=== PATIENT | male | born 1930 | race Caucasian/White ===

== ENCOUNTER 2017-07-11 12:19 | Inpatient (IN) | payer OTHER ==
[~2017-07-11] VITALS: Ht 180.3 cm; Wt 83.9 kg
--- NOTE | ~2017-07-11 | PR ---
[place], [place] PROGRESS NOTE NAME: ANA CHOPRA JR [facility] #: [id number] UNIT #: [id number] ROOM: 406 DOCTOR: OH MOYER MD BIRTHDATE: [birth year] DOS: 07/12/2017 SUBJECTIVE: The patient was seen at his bedside today, 07/12/2017, for followup of his dyspnea. Clinically, he was felt to have heart failure on admission. He also had atrial fibrillation and a pacemaker in place. He is typically followed by elementary educator at the [facility]. He did diurese overnight and states that he feels pretty well today, although he still has some wheezing when he lays down. An echocardiogram was done, which showed normal left ventricular size with global left ventricular hypokinesis. Estimated ejection fraction was moderately impaired at 30-35%. Diastolic function was also impaired, but could not be fully evaluated. He did have mild mitral insufficiency and trace to mild tricuspid insufficiency with normal right ventricular systolic pressures. PHYSICAL EXAMINATION: VITAL SIGNS: Today his pulse is 98 and irregularly irregular, blood pressure is 142/77. He is afebrile. He weighs 83.9 kg and has a body mass index 25.8. HEENT: normocephalic and atraumatic. NECK: Supple. He has jugular venous distention when lying at a 45 degree angle with slight hepatojugular reflux. Carotids are full. LUNGS: Respirations are unlabored. His chest is clear to auscultation and percussion today. HEART: Has an irregularly irregular rhythm without murmurs or gallops. The PMI was not displaced. There was no precordial heave, lift or thrill. EXTREMITIES: Showed 1+ edema at the ankles. LABORATORY DATA: Hemoglobin today is 12.6 with a white count of 7300 and a platelet count of 197,000. Sodium is 139, potassium 4.3, BUN 38, creatinine 2.21. IMPRESSION AND PLAN: The patient does appear to be clinically improved, although he still does seem to be somewhat fluid overloaded. His echocardiogram does show left ventricular dysfunction. We do not have records available to let us know if this is an acute or chronic process. However, his troponin levels are only minimally elevated without a typical rise and fall pattern, suggesting that his elevation was due to acute heart failure. We will switch him from IV to oral diuretics today and continue to follow his clinical status. If he is doing well within the next day, he probably could be discharged for followup with his regular elementary educator. I thank the hospitalist physicians for asking our advice regarding his care. [place], [place] PROGRESS NOTE NAME: ЮЛИЯCALEB ANA CUMMINGS UNIT #: [id number] ROOM: 406 DOCTOR: OH MOYER MD BIRTHDATE: [birth year] OH MOYER MD CM:PNTRANS [id number] OH MOYER MD 07/12/17 1442 interface
--- NOTE | ~2017-07-11 | CON ---
[place], [place] REPORT OF CONSULTATION NAME: ANA CHOPRA JR [facility] #: [id number] UNIT #: [id number] ROOM: 406 DOCTOR: OH MOYER MD BIRTHDATE: [birth year] DOS: 07/11/2017 REASON FOR CONSULTATION: Dyspnea, history of heart disease. HISTORY OF PRESENT ILLNESS: The patient is an 87-year-old man who does have a history of coronary artery disease. He states that he had a myocardial infarction around 1989 and has had stents placed in his heart in the past, but does not know the details. He states that he has had a problem with slow heartbeat and had a pacemaker placed about 10 years ago. He also has had paroxysmal atrial fibrillation and is fully anticoagulated with warfarin. The patient states that he was doing well until the last 3 or 4 days. He began having problems with increased dyspnea on exertion. He noticed some fluttering in his chest. He denied any chest pain and denied any peripheral edema or weight change. He stated that he had a routine appointment [facility] [place] [facility]. He did mention to them that he has been breathless lately. They did an electrocardiogram and then directed him to the Emergency Room. At the Emergency Room, he was found to be in atrial fibrillation with a slightly rapid heart rate response. Chest x-ray was interpreted as showing a left lower lobe infiltrate, even though he did not have a fever or elevated white count. He was hospitalized for further management. PAST MEDICAL HISTORY: Includes, 1. Coronary artery disease, status post myocardial infarction in 1989. 2. Chronic renal insufficiency. 3. Hypertension. 4. Hypothyroidism. 5. Diabetes mellitus, on insulin. 6. Conduction system disorder, probable sick sinus syndrome with tachy and trinidad features, status post pacemaker insertion approximately 2007. 7. Peripheral arterial disease. MEDICATIONS: Prior to admission: Refresh Plus eyedrops each eye t.i.d., allopurinol 200 mg daily, atorvastatin 20 mg at bedtime, iron sulfate 325 mg t.i.d., folic acid 1 mg daily, levothyroxine 125 mcg daily, pantoprazole 40 mg daily, potassium 10 mEq daily, warfarin 2.5 mg at bedtime, Lantus insulin 30 units subcutaneously every morning, clotrimazole 30 grams b.i.d., lidocaine cream p.r.n. pain applied to the feet, analgesic balm applied to the feet, hydrophilic ointment b.i.d. applied to affected areas and mineral oil with petrolatum applied daily. The patient states that he also takes a diuretic, but this was not in his list of medications prior to admission. FAMILY HISTORY: The patient's father at age 90 and his mother at age 97, causes old age. REVIEW OF SYSTEMS: The patient denies diplopia or loss of vision. 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 He denies nausea or vomiting. He denies fevers, chills, sweats or recent weight change. He denies orthopnea, although he states that he wheezes and feels uncomfortable in his chest when he lays flat for the last few [place], [place] REPORT OF CONSULTATION NAME: ANA CHOPRA JR UNIT #: [id number] ROOM: [facility] DOCTOR: OH MOYER MD BIRTHDATE: [birth year] days. He denies PND. He denies hemoptysis or hematemesis. He denies change in bowel or bladder habits and denies blood in his stools or urine. He denies any skin rashes. He denies any hot or swollen joints. The remainder of the review of systems is negative except as noted above. SOCIAL HISTORY: The patient does not smoke or consume significant amounts of alcohol. PHYSICAL EXAMINATION: GENERAL: The patient is an elderly white male who looks younger than his stated age. VITAL SIGNS: Pulse is 90 and irregularly irregular, blood pressure is 155/74. He is afebrile. He weighs 83.9 kg and has a body mass index of 25.8. HEENT: Normocephalic and atraumatic. Extraocular muscles are intact. Sclerae are clear. Pupils equal, round and react to light. The oral mucosa is moist. Tongue is midline. NECK: Supple. He has jugular distention almost to the angle of the jaw with hepatojugular reflux when he is sitting at a 30-degree angle. Carotids are full. I heard no bruits. He had no neck or supraclavicular masses and no thyromegaly. LUNGS: Respirations are unlabored at rest. He does have decreased breath sounds at the bases with a few crackles at the bases bilaterally. He does have presacral edema present. CARDIOVASCULAR: His heart has an irregularly irregular rhythm without murmurs or gallops. PMI is not displaced. There is no precordial heave, lift or thrill. ABDOMEN: Soft and normally active without masses, organomegaly or bruits. EXTREMITIES: Showed a 2-3+ edema almost to the knees. Pedal pulses are difficult to feel in the feet. LABORATORY DATA: I reviewed his electrocardiogram, which showed atrial fibrillation with a slightly elevated heart rate response. He did have evidence for left ventricular hypertrophy and nonspecific ST changes that are probably related to the hypertrophy. A chest x-ray shows cardiac silhouette at the upper limits of normal. There is some haziness at the left base, but no definite vascular congestion. Troponin levels are mildly elevated at 0.1. IMPRESSION: 1. Dyspnea, most likely due to an acute exacerbation of chronic diastolic heart failure. 2. Sick sinus syndrome with tachycardic and bradycardic features. 3. Atrial fibrillation with relatively well controlled ventricular response. 4. History of coronary artery disease. 5. History of bradycardia, status post dual chamber pacemaker insertion. The patient is on chronic warfarin therapy for stroke prophylaxis. 6. Chronic renal insufficiency. PLAN: The patient will be diuresed. He probably should go home on a loop [place], [place] REPORT OF CONSULTATION NAME: ANA CHOPRA JR J UNIT #: [id number] ROOM: 406 DOCTOR: OH MOYER MD BIRTHDATE: [birth year] diuretic. He does have routine followup with a search engine optimization strategist and we will encourage him to follow up with his normal search engine optimization strategist shortly after discharge. At this point, no other workup is being considered. However, if he does not respond immediately to therapy, an echocardiogram will be obtained. I thank Dr. Lind and the hospitalist group for asking our advice regarding the patient's care. OH MOYER MD CM:CONSTR:REPORT OF CONSULTATION 1747 07/11/17 1843 interface
[~2017-07-11 12:19] MED LIST: ABSORBASE TP; ALLOPURINOL100 MG PO; AMLODIPINE BESYL5 MG PO; ASPIRIN DELAYE325 MG PO; ASPIRIN81 M1 PO; CARAFATE1 GM/10 ML PO; CEPHALEXIN500 M1 PO; COLCHICINE0.6 M2 PO; DAYPRO600 M1 PO; FERROUS SULFAT324 M2 PO; GEMFIBROZIL600 MG PO; HYDR1000 IM; KLOR-CON 88 ME1 PO; LASIX40 MG PO; LEVOTHYROXINE125 MCG PO; LOTRIMIN 1%15 GM T; LOVENOX40 MG/0.4 SC; MOTRIN800 MG PO; NEURONTIN300 MG PO; NIFEDIPINE30 MG PO; POTASSIUM99 M3 PO; PRAVACHOL40 MG PO; PROTONIX TR40 M1 PO; XARELTO15 M1 PO; ZOLADEX10.8 MG IM; [UNRECOGNIZED DRUG - OTHER]
[2017-07-11 12:24] VITALS: BP 137/71
[2017-07-11 12:52] LABS: BASO # 0.1 10*3/uL (0.0-0.1); EOS # 0.2 10*3/uL (0.0-0.4); EOS % 2.6 % (1.0-4.0); HEMATOCRIT 40.9 % (42.0-52.0); LYMPH % 16.8 % (27.0-41.0); MEAN CELL VOLUME 93.6 fl (80.0-94.0); MEAN CORPUSCULAR HGB 29.7 pg (27.0-31.0); MEAN CORPUSCULAR HGB CONC 31.8 g/dl (33.0-37.0); MONO # 0.4 10*3/uL (0.1-1.0); MONO % 6.6 % (3.0-9.0); NEUT # 4.5 10*3/uL (2.3-7.9); NEUT % 72.7 % (47.0-73.0); PLATELET COUNT AUTOMATED 195 10*3/uL (130-400); RED BLOOD COUNT 4.37 10*6/uL (4.50-5.90); RED CELL DISTRI WIDTH 15.8 % (0-14.5); WHITE BLOOD COUNT 6.2 10*3/uL (4.8-10.8)
[2017-07-11 13:02] LABS: INTERNATIONAL NORM RATIO 2.6 (2.0-3.5)
[2017-07-11 13:10] LABS: ALBUMIN 3.8 gm/dl (3.1-4.5); CREATININE 2.08 mg/dL (0.70-1.30); POTASSIUM 4.5 mmol/L (3.5-5.1); TOTAL PROTEIN 7.4 gm/dL (6.4-8.2)
[2017-07-11 13:13] LABS: TROPONIN I 0.1 ng/ml (<0.045)
[2017-07-11 13:25] LABS: THYROID STIM HORMONE (HS) 0.947 uIU/ml (0.358-4.75)
[2017-07-11 13:46] VITALS: BP 132/80
[2017-07-11 14:05] VITALS: BP 132/80
[2017-07-11 14:15] VITALS: BP 155/74
[2017-07-11] MEDS ORDERED: PROTONIX40 MG PO (14:37)
[2017-07-11] MEDS ORDERED: LIPITOR40 MG PO (14:38)
[2017-07-11] MEDS ORDERED: LANTUS SOL100 UNIT/1 SQ (14:42)
[2017-07-11] MEDS ORDERED: WARFARIN SODIU2.5 MG PO (14:47)
[2017-07-11] MEDS ORDERED: ANALGESIC BALM28 GM T (14:48)
[2017-07-11] MEDS ORDERED: LIDOCAINE5 GM T (14:49)
[2017-07-11] MEDS ORDERED: IRON325 M1 PO (14:51)
[2017-07-11] MEDS ORDERED: NATURE'S BLEND F1 MG PO (14:52)
[2017-07-11] MEDS ORDERED: HYDROPHILIC113 GM TP (14:53)
[2017-07-11] MEDS ORDERED: REFRESH PLUS1 EACH OP (14:55)
[2017-07-11 16:00] VITALS: BP 155/74
[2017-07-11 20:00] VITALS: BP 149/87
[2017-07-12 00:27] VITALS: BP 129/90
[2017-07-12 06:50] LABS: BASO # 0.1 10*3/uL (0.0-0.1); BASO % 0.8 % (0.0-1.0); EOS # 0.2 10*3/uL (0.0-0.4); EOS % 2.3 % (1.0-4.0); HEMATOCRIT 40.3 % (42.0-52.0); HEMOGLOBIN 12.6 g/dl (14.0-18.0); LYMPH # 0.7 10*3/uL (1.3-4.4); LYMPH % 10.1 % (27.0-41.0); MEAN CELL VOLUME 94.4 fl (80.0-94.0); MEAN CORPUSCULAR HGB 29.5 pg (27.0-31.0); MEAN CORPUSCULAR HGB CONC 31.3 g/dl (33.0-37.0); MEAN PLATELET VOLUME 11.4 fl (9.6-12.3); MONO # 0.4 10*3/uL (0.1-1.0); MONO % 5.5 % (3.0-9.0); NEUT # 5.9 10*3/uL (2.3-7.9); NEUT % 80.9 % (47.0-73.0); PLATELET COUNT AUTOMATED 197 10*3/uL (130-400); RED BLOOD COUNT 4.27 10*6/uL (4.50-5.90); RED CELL DISTRI WIDTH 15.8 % (0-14.5); WHITE BLOOD COUNT 7.3 10*3/uL (4.8-10.8)
[2017-07-12 07:02] LABS: CREATININE 2.21 mg/dL (0.70-1.30); PHOSPHOROUS 4.4 mg/dL (2.5-4.9); POTASSIUM 4.3 mmol/L (3.5-5.1)
[2017-07-12 07:10] LABS: THYROID STIM HORMONE (HS) 0.943 uIU/ml (0.358-4.75)
[2017-07-12 07:47] LABS: VITAMIN D, 25-HYDROXY 45.5 ng/mL (30-100)
[2017-07-12 07:52] LABS: TROPONIN I 0.098 ng/ml (<0.045)
[2017-07-12 08:00] VITALS: BP 128/68
[2017-07-12 11:53] VITALS: BP 142/77
[2017-07-12 16:00] VITALS: BP 139/70
[2017-07-12 20:00] VITALS: BP 127/75
[2017-07-13] VITALS: BP 152/79
[2017-07-13 06:14] LABS: POTASSIUM 4.3 mmol/L (3.5-5.1)
[2017-07-13 06:16] LABS: CREATININE 2.33 mg/dL (0.70-1.30)
[2017-07-13 08:00] VITALS: BP 117/87
[2017-07-13] MEDS ORDERED: FUROSEMIDE40 MG PO (11:40)
[2017-07-13] MEDS ORDERED: ALDACTONE25 MG PO (11:40)
[2017-07-13] MEDS ORDERED: CARVEDILOL3.125 MG PO (11:40)
[2017-07-13 11:56] VITALS: BP 143/89
== END 2017-07-13 13:00 | disposition home or self-care (01) | DRG 682 ==
LOC: ED 12:19 → 4E 13:29 → EDHOLD 13:29 → 4E 13:38
PROVIDERS: Emergency Medicine; Internal Medicine Cardiovascular Disease; Student in an Organized Health Care Education/Training Program
DX: N17.9 Acute kidney failure, unspecified (principal); I50.43 Acute on chronic combined systolic (congestive) and diastolic (congestive) heart failure; J90 Pleural effusion, not elsewhere classified; D68.59 Other primary thrombophilia; E11.22 Type 2 diabetes mellitus with diabetic chronic kidney disease; E11.51 Type 2 diabetes mellitus with diabetic peripheral angiopathy without gangrene; E83.41 Hypermagnesemia; I13.0 Hypertensive heart and chronic kidney disease with heart failure and stage 1 through stage 4 chronic kidney disease, or unspecified chronic kidney disease; N18.3 Chronic kidney disease, stage 3 (moderate); D64.9 Anemia, unspecified; R74.8 Abnormal levels of other serum enzymes; D72.810 Lymphocytopenia; E03.9 Hypothyroidism, unspecified; I25.10 Atherosclerotic heart disease of native coronary artery without angina pectoris; I08.1 Rheumatic disorders of both mitral and tricuspid valves; E78.00 Pure hypercholesterolemia, unspecified; R29.6 Repeated falls; I48.0 Paroxysmal atrial fibrillation; I49.5 Sick sinus syndrome; Z79.4 Long term (current) use of insulin; Z90.79 Acquired absence of other genital organ(s); Z95.0 Presence of cardiac pacemaker; Z95.5 Presence of coronary angioplasty implant and graft; Z79.01 Long term (current) use of anticoagulants; Z79.899 Other long term (current) drug therapy; I25.2 Old myocardial infarction; Z87.440 Personal history of urinary (tract) infections

== ENCOUNTER 2017-07-27 14:41 | Inpatient (IN) | payer OTHER ==
[~2017-07-27] VITALS: Ht 180.3 cm; Wt 85.0 kg
[2017-07-27 14:41] VITALS: BP 108/73
[~2017-07-27 14:41] MED LIST changes: +ALDACTONE25 MG PO; +ANALGESIC BALM28 GM T; +CARVEDILOL3.125 MG PO; +FUROSEMIDE40 MG PO; +HYDROPHILIC113 GM TP; +IRON325 M1 PO; +LANTUS SOL100 UNIT/1 SQ; +LIDOCAINE5 GM T; +LIPITOR40 MG PO; +NATURE'S BLEND F1 MG PO; +PROTONIX40 MG PO; +REFRESH PLUS1 EACH OP; +WARFARIN SODIU2.5 MG PO
[2017-07-27] MEDS ORDERED: COREG3.125 MG PO (14:53)
[2017-07-27] MEDS ORDERED: LASIX40 MG PO (14:54)
[2017-07-27 15:10] LABS: BASO # 0.1 10*3/uL (0.0-0.1); BASO % 1.3 % (0.0-1.0); EOS # 0.2 10*3/uL (0.0-0.4); EOS % 2.9 % (1.0-4.0); HEMATOCRIT 45.1 % (42.0-52.0); HEMOGLOBIN 14.6 g/dl (14.0-18.0); LYMPH # 1.2 10*3/uL (1.3-4.4); LYMPH % 15.6 % (27.0-41.0); MEAN CELL VOLUME 89.8 fl (80.0-94.0); MEAN CORPUSCULAR HGB 29.1 pg (27.0-31.0); MEAN CORPUSCULAR HGB CONC 32.4 g/dl (33.0-37.0); MEAN PLATELET VOLUME 11.5 fl (9.6-12.3); MONO # 0.4 10*3/uL (0.1-1.0); MONO % 5.3 % (3.0-9.0); NEUT # 5.7 10*3/uL (2.3-7.9); NEUT % 74.6 % (47.0-73.0); PLATELET COUNT AUTOMATED 210 10*3/uL (130-400); RED BLOOD COUNT 5.02 10*6/uL (4.50-5.90); RED CELL DISTRI WIDTH 14.6 % (0-14.5); WHITE BLOOD COUNT 7.6 10*3/uL (4.8-10.8)
[2017-07-27 15:19] LABS: ACT PARTIAL THROMBO TIME 41.5 SECONDS (20.8-31.5); INTERNATIONAL NORM RATIO 4.1 (2.0-3.5)
[2017-07-27 15:25] LABS: CREATININE 3.31 mg/dL (0.70-1.30); POTASSIUM 5.3 mmol/L (3.5-5.1); TROPONIN I 0.043 ng/ml (<0.045)
[2017-07-27 16:45] VITALS: BP 119/71
[2017-07-27 20:00] VITALS: BP 139/88
[2017-07-28] VITALS: BP 119/67
[2017-07-28 06:34] LABS: BASO # 0.1 10*3/uL (0.0-0.1); BASO % 1.3 % (0.0-1.0); EOS # 0.3 10*3/uL (0.0-0.4); EOS % 4.7 % (1.0-4.0); HEMATOCRIT 42.9 % (42.0-52.0); HEMOGLOBIN 13.8 g/dl (14.0-18.0); LYMPH # 1.7 10*3/uL (1.3-4.4); LYMPH % 24.9 % (27.0-41.0); MEAN CELL VOLUME 90.7 fl (80.0-94.0); MEAN CORPUSCULAR HGB 29.2 pg (27.0-31.0); MEAN CORPUSCULAR HGB CONC 32.2 g/dl (33.0-37.0); MONO # 0.5 10*3/uL (0.1-1.0); MONO % 6.5 % (3.0-9.0); NEUT # 4.3 10*3/uL (2.3-7.9); NEUT % 62.5 % (47.0-73.0); PLATELET COUNT AUTOMATED 206 10*3/uL (130-400); RED BLOOD COUNT 4.73 10*6/uL (4.50-5.90); RED CELL DISTRI WIDTH 14.6 % (0-14.5)
[2017-07-28 06:36] LABS: INTERNATIONAL NORM RATIO 4.2 (2.0-3.5)
[2017-07-28 06:51] LABS: CREATININE 2.96 mg/dL (0.70-1.30); PHOSPHOROUS 4.3 mg/dL (2.5-4.9)
[2017-07-28 07:03] LABS: POTASSIUM 4.1 mmol/L (3.5-5.1)
[2017-07-28 08:00] VITALS: BP 124/67
[2017-07-28 12:00] VITALS: BP 158/61
[2017-07-28 16:00] VITALS: BP 146/96
[2017-07-28 20:00] VITALS: BP 148/68
[2017-07-29] VITALS: BP 143/72
[2017-07-29 06:38] LABS: CREATININE 2.64 mg/dL (0.70-1.30); POTASSIUM 4.8 mmol/L (3.5-5.1)
[2017-07-29 08:00] VITALS: BP 126/75
[2017-07-29 10:47] LABS: INTERNATIONAL NORM RATIO 3.7 (2.0-3.5)
[2017-07-29 12:00] VITALS: BP 115/75
[2017-07-29 16:00] VITALS: BP 130/63
[2017-07-29 20:00] VITALS: BP 136/82
[2017-07-30 00:07] VITALS: BP 106/87
[2017-07-30 06:21] LABS: INTERNATIONAL NORM RATIO 2.3 (2.0-3.5)
[2017-07-30 06:22] LABS: CREATININE 2.64 mg/dL (0.70-1.30)
[2017-07-30 06:31] LABS: POTASSIUM 3.7 mmol/L (3.5-5.1)
[2017-07-30 08:00] VITALS: BP 134/92
[2017-07-30] MEDS ORDERED: ALLOPURINOL100 MG PO (10:51)
[2017-07-30] MEDS ORDERED: CARVEDILOL6.25 MG PO (10:51)
[2017-07-30] MEDS ORDERED: Coumadin2 MG PO (10:51)
== END 2017-07-30 12:45 | disposition home or self-care (01) | DRG 683 ==
LOC: ED 14:41 → EDHOLD 15:50 → 5E 15:50
PROVIDERS: Emergency Medicine; Internal Medicine; Student in an Organized Health Care Education/Training Program
DX: N17.0 Acute kidney failure with tubular necrosis (principal); D68.59 Other primary thrombophilia; D68.32 Hemorrhagic disorder due to extrinsic circulating anticoagulants; E11.22 Type 2 diabetes mellitus with diabetic chronic kidney disease; E11.51 Type 2 diabetes mellitus with diabetic peripheral angiopathy without gangrene; I50.42 Chronic combined systolic (congestive) and diastolic (congestive) heart failure; I13.0 Hypertensive heart and chronic kidney disease with heart failure and stage 1 through stage 4 chronic kidney disease, or unspecified chronic kidney disease; E87.1 Hypo-osmolality and hyponatremia; E87.5 Hyperkalemia; E83.41 Hypermagnesemia; E87.8 Other disorders of electrolyte and fluid balance, not elsewhere classified; I48.2 Chronic atrial fibrillation; E03.9 Hypothyroidism, unspecified; I25.10 Atherosclerotic heart disease of native coronary artery without angina pectoris; D72.810 Lymphocytopenia; E11.65 Type 2 diabetes mellitus with hyperglycemia; R79.89 Other specified abnormal findings of blood chemistry; R29.6 Repeated falls; N18.4 Chronic kidney disease, stage 4 (severe); T45.515A Adverse effect of anticoagulants, initial encounter; Z66 Do not resuscitate; Z51.5 Encounter for palliative care; Z95.0 Presence of cardiac pacemaker; Y92.89 Other specified places as the place of occurrence of the external cause; Z79.899 Other long term (current) drug therapy; Z79.4 Long term (current) use of insulin; Z79.01 Long term (current) use of anticoagulants; I25.2 Old myocardial infarction; Z98.61 Coronary angioplasty status

== ENCOUNTER 2017-09-14 22:43 | Emergency (ER) | payer OTHER ==
[~2017-09-14] VITALS: Ht 180.3 cm; Wt 83.0 kg
[~2017-09-14 22:43] MED LIST changes: +CARVEDILOL6.25 MG PO; +COREG3.125 MG PO; +Coumadin2 MG PO
[2017-09-14 23:25] LABS: BASO # 0.1 10*3/uL (0.0-0.1); BASO % 1.2 % (0.0-1.0); EOS # 0.2 10*3/uL (0.0-0.4); EOS % 3.2 % (1.0-4.0); HEMATOCRIT 44.4 % (42.0-52.0); HEMOGLOBIN 14.5 g/dl (14.0-18.0); LYMPH # 1.2 10*3/uL (1.3-4.4); LYMPH % 18.1 % (27.0-41.0); MEAN CELL VOLUME 90.4 fl (80.0-94.0); MEAN CORPUSCULAR HGB 29.5 pg (27.0-31.0); MEAN CORPUSCULAR HGB CONC 32.7 g/dl (33.0-37.0); MEAN PLATELET VOLUME 11.3 fl (9.6-12.3); MONO # 0.5 10*3/uL (0.1-1.0); MONO % 7.8 % (3.0-9.0); NEUT # 4.6 10*3/uL (2.3-7.9); NEUT % 69.4 % (47.0-73.0); PLATELET COUNT AUTOMATED 169 10*3/uL (130-400); RED BLOOD COUNT 4.91 10*6/uL (4.50-5.90); RED CELL DISTRI WIDTH 15.1 % (0-14.5); WHITE BLOOD COUNT 6.6 10*3/uL (4.8-10.8)
[2017-09-14 23:41] LABS: ALBUMIN 3.4 gm/dl (3.1-4.5); CREATININE 2.7 mg/dL (0.70-1.30); POTASSIUM 4.7 mmol/L (3.5-5.1); TOTAL PROTEIN 7.2 gm/dL (6.4-8.2)
[2017-09-14 23:42] LABS: INTERNATIONAL NORM RATIO 6.1 (2.0-3.5)
== END 2017-09-15 00:24 | disposition left against medical advice (07) ==
LOC: ED 22:43
PROVIDERS: Physician Assistant
DX: S91.302A Unspecified open wound, left foot, initial encounter (principal); R79.1 Abnormal coagulation profile; Z79.899 Other long term (current) drug therapy; I48.91 Unspecified atrial fibrillation; Z79.02 Long term (current) use of antithrombotics/antiplatelets; X58.XXXA Exposure to other specified factors, initial encounter; Y93.89 Activity, other specified; Y92.89 Other specified places as the place of occurrence of the external cause; Y99.8 Other external cause status

== ENCOUNTER 2017-10-10 16:46 | Emergency (ER) | payer OTHER ==
[~2017-10-10] VITALS: Ht 182.8 cm; Wt 83.0 kg
[2017-10-10 18:18] LABS: BASO # 0.1 10*3/uL (0.0-0.1); BASO % 0.6 % (0.0-1.0); EOS # 0.1 10*3/uL (0.0-0.4); EOS % 0.8 % (1.0-4.0); HEMATOCRIT 47.6 % (42.0-52.0); HEMOGLOBIN 15.4 g/dl (14.0-18.0); LYMPH # 0.7 10*3/uL (1.3-4.4); LYMPH % 9.1 % (27.0-41.0); MEAN CORPUSCULAR HGB 29.1 pg (27.0-31.0); MEAN CORPUSCULAR HGB CONC 32.4 g/dl (33.0-37.0); MONO # 0.4 10*3/uL (0.1-1.0); MONO % 4.8 % (3.0-9.0); NEUT # 6.8 10*3/uL (2.3-7.9); NEUT % 84.4 % (47.0-73.0); PLATELET COUNT AUTOMATED 215 10*3/uL (130-400); RED BLOOD COUNT 5.29 10*6/uL (4.50-5.90); RED CELL DISTRI WIDTH 16.3 % (0-14.5)
[2017-10-10 18:34] LABS: ACT PARTIAL THROMBO TIME 41.6 SECONDS (20.8-31.5); ALBUMIN 3.7 gm/dl (3.1-4.5); CREATININE 2.64 mg/dL (0.70-1.30); POTASSIUM 5.2 mmol/L (3.5-5.1); TOTAL PROTEIN 7.6 gm/dL (6.4-8.2)
[2017-10-10 18:35] LABS: TROPONIN I 0.038 ng/ml (<0.045)
[2017-10-10 18:37] LABS: INTERNATIONAL NORM RATIO 5.9 (2.0-3.5)
== END 2017-10-10 22:50 ==
LOC: ED 16:46
PROVIDERS: Nurse Practitioner Family
DX: S02.40CA Maxillary fracture, right side, initial encounter for closed fracture (principal); S02.40EA Zygomatic fracture, right side, initial encounter for closed fracture; S02.81XA Fracture of other specified skull and facial bones, right side, initial encounter for closed fracture; S60.812A Abrasion of left wrist, initial encounter; S60.811A Abrasion of right wrist, initial encounter; S80.212A Abrasion, left knee, initial encounter; S80.211A Abrasion, right knee, initial encounter; I48.91 Unspecified atrial fibrillation; I25.10 Atherosclerotic heart disease of native coronary artery without angina pectoris; I13.0 Hypertensive heart and chronic kidney disease with heart failure and stage 1 through stage 4 chronic kidney disease, or unspecified chronic kidney disease; E11.22 Type 2 diabetes mellitus with diabetic chronic kidney disease; N18.3 Chronic kidney disease, stage 3 (moderate); I50.9 Heart failure, unspecified; E78.00 Pure hypercholesterolemia, unspecified; E03.9 Hypothyroidism, unspecified; R79.1 Abnormal coagulation profile; Z95.5 Presence of coronary angioplasty implant and graft; Z95.0 Presence of cardiac pacemaker; Z98.890 Other specified postprocedural states; Z79.899 Other long term (current) drug therapy; Z79.4 Long term (current) use of insulin; Z79.01 Long term (current) use of anticoagulants; W19.XXXA Unspecified fall, initial encounter; Y93.89 Activity, other specified; Y92.89 Other specified places as the place of occurrence of the external cause; Y99.9 Unspecified external cause status

== ENCOUNTER → 2018-03-13 | Outpatient (CLI) | payer OTHER | END | disposition home or self-care (01) | LOC: US 14:53 | DX: N17.9 Acute kidney failure, unspecified (principal); N18.3 Chronic kidney disease, stage 3 (moderate); N25.81 Secondary hyperparathyroidism of renal origin ==

== ENCOUNTER 2018-03-30 17:35 | Inpatient (IN) | payer OTHER ==
[~2018-03-30] VITALS: Ht 180.3 cm; Wt 79.0 kg
--- NOTE | ~2018-03-30 | EKG ---
[place], [place] ELECTROCARDIOGRAM REPORT NAME: ANA CHOPRA JR UNIT #: [id number] ROOM: 507 DOCTOR: SAM DRAFT REPORT BIRTHDATE: [birth year] [facility] Test Date: 2018-03-30 Test Time: 18:44:04 Pat Name: ANA CHOPRA Department: Room: 507 Gender: M Product Development Coordinator: Ani Brantley : 1930 Requested By: ZACK GUTHRIE Order Number: [id number] Reading MD: Federico Kuo MD Measurements Intervals [place] Rate: 61 P: [place]: QRS: 22 QRSD: 125 T: 229 QT: 456 QTc: 460 Interpretive Statements Afib/flut and V-paced complexes No further rhythm analysis attempted due to paced rhythm Left bundle branch block Electronically Signed On 03-31-2018 10:50:05 PST by Federico Kuo MD CM:EKGRPT:ELECTROCARDIOGRAM REPORT [id number] 1050 ZACK CABA DRAFT REPORT ZACK GUTHRIE DO
[2018-03-30 17:40] VITALS: BP 143/81
[2018-03-30 18:47] LABS: BASO # 0.1 10*3/uL (0.0-0.1); EOS # 0.2 10*3/uL (0.0-0.4); EOS % 2.6 % (1.0-4.0); HEMATOCRIT 42.3 % (42.0-52.0); HEMOGLOBIN 13.5 g/dl (14.0-18.0); LYMPH # 0.7 10*3/uL (1.3-4.4); LYMPH % 9.4 % (27.0-41.0); MEAN CELL VOLUME 93.4 fl (80.0-94.0); MEAN CORPUSCULAR HGB 29.8 pg (27.0-31.0); MEAN CORPUSCULAR HGB CONC 31.9 g/dl (33.0-37.0); MEAN PLATELET VOLUME 11.5 fl (9.6-12.3); MONO # 0.3 10*3/uL (0.1-1.0); MONO % 4.4 % (3.0-9.0); NEUT % 82.3 % (47.0-73.0); PLATELET COUNT AUTOMATED 184 10*3/uL (130-400); RED BLOOD COUNT 4.53 10*6/uL (4.50-5.90); WHITE BLOOD COUNT 7.2 10*3/uL (4.8-10.8)
[2018-03-30 18:57] LABS: INTERNATIONAL NORM RATIO 1.8 (2.0-3.5)
[2018-03-30 19:03] LABS: ALBUMIN 3.3 gm/dl (3.1-4.5); ALKALINE PHOSPHATASE 118 U/L (45-117); BUN 37 mg/dl (7-24); CHLORIDE 102 mmol/L (98-107); CREATININE 2.13 mg/dL (0.70-1.30); LIPASE 49 U/L (73-393); POTASSIUM 3.3 mmol/L (3.5-5.1); SGOT/AST 19 IU/L (3-35); SGPT/ALT 17 U/L (12-78); SODIUM 138 mmol/L (136-145); TOTAL PROTEIN 7.4 gm/dL (6.4-8.2)
[2018-03-30 19:07] LABS: TROPONIN I 0.048 ng/ml (<0.045)
[2018-03-30 20:03] VITALS: BP 156/98
--- NOTE | 2018-03-30 20:03 | NUR ---
Time: 2002 A 87 year old MALE admitted to 5E under services of JOSUÉ LOW DO Pt. arrived via bed from ER. Chief complaint: HYPOGLYCEMIA. UPON ARRIVAL TO THE FLOOR THIS RN CHECKED PT'S BLOOD GLUCOSE WHICH WAS 158. REPORT GIVEN FROM ER NURSE AND PT BELONGINS ACCOUNTED FOR. HEALTHY LIFESTYLES GUIDELINE REVIEWED. WILL CONTINUE TO MONITOR PT. NAVYA FABIAN
--- NOTE | 2018-03-30 22:10 | NUR ---
DR. LAMBERT NOTIFIED MED REC IS UP TO DATE
[2018-03-31] VITALS: BP 152/79
--- NOTE | 2018-03-31 02:43 | NUR ---
24 HR chart check completed.
--- NOTE | 2018-03-31 03:54 | NUR ---
PT IS RESTING IN BED AT THIS TIME WITH EYES CLOSED. THERE ARE NO SYMPTOMS OF PAIN OR DISTRESS NOTED AT THIS TIME. RESPIRATIONS ARE EASY AND UNLABORED. BED IS IN LOWEST POSITION WITH ALARM ON AND CALL LIGHT IS WITHIN REACH. WILL CONTINUE TO MONITOR PT.
[2018-03-31 07:02] LABS: BASO # 0.1 10*3/uL (0.0-0.1); BASO % 0.9 % (0.0-1.0); EOS # 0.1 10*3/uL (0.0-0.4); EOS % 1.9 % (1.0-4.0); HEMOGLOBIN 11.8 g/dl (14.0-18.0); LYMPH # 1.2 10*3/uL (1.3-4.4); LYMPH % 17.5 % (27.0-41.0); MEAN CELL VOLUME 93.7 fl (80.0-94.0); MEAN CORPUSCULAR HGB 29.9 pg (27.0-31.0); MEAN CORPUSCULAR HGB CONC 31.9 g/dl (33.0-37.0); MEAN PLATELET VOLUME 11.4 fl (9.6-12.3); MONO # 0.4 10*3/uL (0.1-1.0); MONO % 5.7 % (3.0-9.0); NEUT # 4.9 10*3/uL (2.3-7.9); NEUT % 73.7 % (47.0-73.0); PLATELET COUNT AUTOMATED 171 10*3/uL (130-400); RED BLOOD COUNT 3.95 10*6/uL (4.50-5.90); RED CELL DISTRI WIDTH 15.1 % (0-14.5); WHITE BLOOD COUNT 6.7 10*3/uL (4.8-10.8)
[2018-03-31 07:12] LABS: ACT PARTIAL THROMBO TIME 32.3 SECONDS (20.8-31.5); INTERNATIONAL NORM RATIO 1.8 (2.0-3.5)
[2018-03-31 07:19] LABS: ALBUMIN 3.1 gm/dl (3.1-4.5); CREATININE 1.99 mg/dL (0.70-1.30); FREE T4 1.65 ng/dl (0.76-1.46); PHOSPHOROUS 3.1 mg/dL (2.5-4.9); TOTAL PROTEIN 6.6 gm/dL (6.4-8.2)
[2018-03-31 07:23] LABS: THYROID STIM HORMONE (HS) 0.413 uIU/ml (0.358-4.75)
[2018-03-31 07:25] LABS: POTASSIUM 4.3 mmol/L (3.5-5.1)
[2018-03-31 08:00] VITALS: BP 122/72
--- NOTE | 2018-03-31 08:30 | NUR ---
PT RESTING IN BED, DENIES ANY COMPLAINTS AT THIS TIME. CALL LIGHT WITHIN REACH.
--- NOTE | 2018-03-31 12:15 | NUR ---
Discharge instructions reviewed with patient/family. Patient receptive and verbalizes understanding. Follow-up care arranged. Written instructions given to patient/family. IV site removed. Pt transported to [facility] via wheelchair. TRINIDAD SANDRA
== END 2018-03-31 12:15 | disposition home or self-care (01) | DRG 638 ==
LOC: ED 17:35 → EDHOLD 18:26 → 5E 18:26
PROVIDERS: Emergency Medicine; Internal Medicine; ADMIT Internal Medicine
DX: E11.649 Type 2 diabetes mellitus with hypoglycemia without coma (principal); D68.59 Other primary thrombophilia; I13.0 Hypertensive heart and chronic kidney disease with heart failure and stage 1 through stage 4 chronic kidney disease, or unspecified chronic kidney disease; N18.3 Chronic kidney disease, stage 3 (moderate); I48.2 Chronic atrial fibrillation; E11.51 Type 2 diabetes mellitus with diabetic peripheral angiopathy without gangrene; R00.1 Bradycardia, unspecified; E87.6 Hypokalemia; D72.810 Lymphocytopenia; E03.9 Hypothyroidism, unspecified; Z66 Do not resuscitate; Z51.5 Encounter for palliative care; R29.6 Repeated falls; I25.10 Atherosclerotic heart disease of native coronary artery without angina pectoris; I50.9 Heart failure, unspecified; E11.22 Type 2 diabetes mellitus with diabetic chronic kidney disease; I25.2 Old myocardial infarction; Z95.0 Presence of cardiac pacemaker; Z95.5 Presence of coronary angioplasty implant and graft; Z79.899 Other long term (current) drug therapy; Z79.01 Long term (current) use of anticoagulants

== ENCOUNTER 2018-05-04 15:38 | Inpatient (IN) | payer OTHER ==
[~2018-05-04] VITALS: Ht 180.3 cm; Wt 75.4 kg
--- NOTE | ~2018-05-04 | EKG ---
[place], [place] ELECTROCARDIOGRAM REPORT NAME: ANA CHOPRA JR UNIT #: [id number] ROOM: 406 DOCTOR: EPIPHANY DRAFT REPORT BIRTHDATE: [birth year] [facility] Test Date: 2018-05-04 Test Time: 16:16:07 Pat Name: ANA CHOPRA Department: Room: 406 Gender: M Light Technician: Britta Hernández : 1930 Requested By: LORAINE GONZALEZ DNP Order Number: [id number] Reading MD: Umberto Osman MD Measurements Intervals [place] Rate: 69 P: [place]: QRS: 40 QRSD: 110 T: 225 QT: 397 QTc: 426 Interpretive Statements Afib/flut and V-paced complexes No further rhythm analysis attempted due to paced rhythm LVH with secondary repolarization abnormality Compared to ECG 03/30/2018 18:44:04 No significant change Electronically Signed On 05-04-2018 18:09:49 PST by Umberto Osman MD CM:EKGRPT:ELECTROCARDIOGRAM REPORT [id number] 1809 LORAINE GONZALEZ DNP EPIPHANY DRAFT REPORT LORAINE GONZALEZ DNP
--- NOTE | ~2018-05-04 | EKG ---
[place], [place] ELECTROCARDIOGRAM REPORT NAME: ANA CHOPRA JR UNIT #: [id number] ROOM: 406 DOCTOR: SAM DRAFT REPORT BIRTHDATE: [birth year] [facility] Test Date: 2018-05-04 Test Time: 21:52:37 Pat Name: ANA CHOPRA Department: Room: 406 Gender: M Stage Set Designer: Umberto Jones : 1930 Requested By: DANIELA MOON Order Number: [id number] Reading MD: Umberto Osman MD Measurements Intervals [place] Rate: 77 P: [place]: QRS: 29 QRSD: 97 T: 224 QT: 401 QTc: 454 Interpretive Statements Atrial fibrillation Ventricular premature complex Compared to ECG 05/04/2018 16:16:07 Ventricular premature complex(es) now present Q waves now present Ventricular-paced complex(es) or rhythm no longer present Early repolarization no longer present Electronically Signed On 05-05-2018 8:57:16 PST by Umberto Osman MD CM:EKGRPT:ELECTROCARDIOGRAM REPORT [id number] DANIELA CABA DRAFT REPORT DANIELA MOON DO
--- NOTE | ~2018-05-04 | EKG ---
[place], [place] ELECTROCARDIOGRAM REPORT NAME: ANA CHOPRA JR UNIT #: [id number] ROOM: 406 DOCTOR: SAM DRAFT REPORT BIRTHDATE: [birth year] [facility] Test Date: 2018-05-04 Test Time: 19:01:10 Pat Name: ANA CHOPRA Department: Room: 406 Gender: M Card Folder: Umberto Jones : 1930 Requested By: DANIELA MOON Order Number: [id number] Reading MD: Umberto Osman MD Measurements Intervals [place] Rate: 76 P: 231 GA: 315 QRS: 25 QRSD: 97 T: 223 QT: 403 QTc: 454 Interpretive Statements Atrial fibrillation with ventricular-paced complexes LVH with secondary repolarization abnormality Compared to ECG 03/30/2018 18:44:04 Left ventricular hypertrophy now present Paced rhythm is still present Electronically Signed On 05-05-2018 8:50:17 PST by Umberto Osman MD CM:EKGRPT:ELECTROCARDIOGRAM REPORT [id number] DANIELA CABA DRAFT REPORT DANIELA MOON DO
[2018-05-04 15:40] VITALS: BP 129/73
[2018-05-04] MEDS ORDERED: TRAD5TAB1 PO (16:02)
[2018-05-04 16:35] LABS: BASO # 0.1 10*3/uL (0.0-0.1); BASO % 1.1 % (0.0-1.0); EOS # 0.1 10*3/uL (0.0-0.4); HEMATOCRIT 41.3 % (42.0-52.0); HEMOGLOBIN 13.3 g/dl (14.0-18.0); LYMPH # 0.9 10*3/uL (1.3-4.4); LYMPH % 14.4 % (27.0-41.0); MEAN CORPUSCULAR HGB 29.6 pg (27.0-31.0); MEAN CORPUSCULAR HGB CONC 32.2 g/dl (33.0-37.0); MEAN PLATELET VOLUME 13.5 fl (9.6-12.3); MONO # 0.4 10*3/uL (0.1-1.0); MONO % 6.5 % (3.0-9.0); NEUT # 4.9 10*3/uL (2.3-7.9); NEUT % 75.7 % (47.0-73.0); PLATELET COUNT AUTOMATED 146 10*3/uL (130-400); RED BLOOD COUNT 4.49 10*6/uL (4.50-5.90); RED CELL DISTRI WIDTH 15.6 % (0-14.5); WHITE BLOOD COUNT 6.5 10*3/uL (4.8-10.8)
[2018-05-04 16:50] LABS: ALBUMIN 3.3 gm/dl (3.1-4.5); ALKALINE PHOSPHATASE 113 U/L (45-117); BUN 49 mg/dl (7-24); CHLORIDE 97 mmol/L (98-107); CREATININE 2.89 mg/dL (0.70-1.30); LIPASE 41 U/L (73-393); POTASSIUM 3.6 mmol/L (3.5-5.1); SGOT/AST 16 IU/L (3-35); SGPT/ALT 17 U/L (12-78); SODIUM 135 mmol/L (136-145); TOTAL PROTEIN 7.1 gm/dL (6.4-8.2)
[2018-05-04 16:54] LABS: INTERNATIONAL NORM RATIO 5.5 (2.0-3.5)
[2018-05-04 16:57] LABS: TROPONIN I 0.096 ng/ml (<0.045)
[2018-05-04 17:44] LABS: BILIRUBIN NEGATIVE (NEGATIVE); BLOOD 1+ (NEGATIVE); CLARITY CLEAR (CLEAR); COLOR YELLOW (YELLOW); GLUCOSE NEGATIVE (NEGATIVE); KETONE NEGATIVE (NEGATIVE); LEUKO ESTERASE NEGATIVE (NEGATIVE); NITRITE NEGATIVE (NEGATIVE); PH 5.5 (5.0-9.0); UROBILINOGEN 0.2 E.U./dl (0.2-1.0)
[2018-05-04 17:51] LABS: BACTERIA 1+; WBC 0-2 wbc/hpf (0-5)
[2018-05-04 18:50] VITALS: BP 136/84
--- NOTE | 2018-05-04 19:40 | NUR ---
Time: 1937 A 87 year old MALE admitted to under services of JOSUÉ LOW DO, Pt. arrived via stretcher from ER. Chief complaint: ELEVATED TROP, RENAL INSUFFICIENY. DARRIUS DISLA
[2018-05-04] MEDS ORDERED: COREG3.125 MG PO (19:55)
--- NOTE | 2018-05-04 21:25 | NUR ---
LAB CALLS CRITICAL TROPONIN LEVEL TO THIS NURSE. LEVEL IS 0.090. DR. ALICEA NOTIFIED, NO NEW ORDERS RECEIVED AT THIS TIME.
[2018-05-05] VITALS: BP 125/57
--- NOTE | 2018-05-05 02:00 | NUR ---
NOTIFIED DR ALICEA OF PT HAVING WOUNDS, NO ORDERS RECEIVED AT THIS TIME. WOUND CARE CONSULT IN PLACE.
[2018-05-05 06:39] LABS: BASO # 0.1 10*3/uL (0.0-0.1); EOS # 0.3 10*3/uL (0.0-0.4); EOS % 4.2 % (1.0-4.0); HEMATOCRIT 40.5 % (42.0-52.0); HEMOGLOBIN 12.8 g/dl (14.0-18.0); LYMPH # 1.1 10*3/uL (1.3-4.4); LYMPH % 16.5 % (27.0-41.0); MEAN CELL VOLUME 92.5 fl (80.0-94.0); MEAN CORPUSCULAR HGB 29.2 pg (27.0-31.0); MEAN CORPUSCULAR HGB CONC 31.6 g/dl (33.0-37.0); MEAN PLATELET VOLUME 13.6 fl (9.6-12.3); MONO # 0.5 10*3/uL (0.1-1.0); MONO % 6.7 % (3.0-9.0); NEUT # 4.9 10*3/uL (2.3-7.9); NEUT % 71.5 % (47.0-73.0); PLATELET COUNT AUTOMATED 143 10*3/uL (130-400); RED BLOOD COUNT 4.38 10*6/uL (4.50-5.90); RED CELL DISTRI WIDTH 15.5 % (0-14.5); WHITE BLOOD COUNT 6.8 10*3/uL (4.8-10.8)
[2018-05-05 07:02] LABS: ALBUMIN 3.5 gm/dl (3.1-4.5); CREATININE 2.81 mg/dL (0.70-1.30); PHOSPHOROUS 3.4 mg/dL (2.5-4.9); POTASSIUM 3.5 mmol/L (3.5-5.1); TOTAL PROTEIN 6.9 gm/dL (6.4-8.2)
[2018-05-05 08:00] VITALS: BP 138/70
--- NOTE | 2018-05-05 09:00 | NUR ---
case management attempted to visit with patient, patient was ambulating with his walker going to the bathroom, case management will see at a later time today
--- NOTE | 2018-05-05 09:15 | NUR ---
PAGED REGARDING CONSULT.
[2018-05-05 12:00] VITALS: BP 142/72
--- NOTE | 2018-05-05 13:15 | NUR ---
PATIENT IS IN CT AT THIS TIME. WILL ASSESS AT A LATER TIME.
--- NOTE | 2018-05-05 14:56 | NUR ---
KEYSHA CUMMINGSANA [id number] Please refer to the physician's history and physical for past medical history, comorbid conditions, and allergies. Diagnosis: ELEVATED TROPONIN I LEVEL RENAL INSUFFICIENCY David Score: 16,AT RISK WOUND DESCRIPTIONS: INTACT SCABS NOTED TO LEFT GREAT TOE, LEFT SECOND TOE AND LEFT SIDE OF NECK. NO REDNESS OR DRAINAGE NOTED. PATIENT STATES [facility]. PATIENT STATES THESE AREAS ARE TO BE LEFT ALONE. RIGHT INNER FOOT RED AND BLANCHABLE. Surface the patient is resting on: Isoflex SKIN PREVENTION RECOMMENDATION: 1. Pressure redistribution support surface as appropriate 2. Elevate heels 3. Remove boots/TEDS every shift and reapply 4. Head of bed 30 degrees as tolerated 5. Assess nutrition and hydration 6. Manage moisture 7. Avoid the use of containment devices while in bed 8. Use absorptive products on surfaces limit layers of linens on bed 9. Turn and reposition every 1-2 hours in bed and every 1 hour in chair as tolerated 10. Weight shifts every 15 minutes while up in chair 11. Offloading with pillows or device to keep heels elevated off bed 12. Monitor skin at least every shift 13. Inspect under medical devices twice a day WOUND TREATMENT RECOMMENDATIONS: CLEANSE LEFT GREAT TOE, LEFT 2ND TOE WITH NSS APPLY SUREPREP AND ALLOW TO DRY LEAVE OPEN TO AIR. HYDRAGUARD TO BUTTOCK FOR PROTECTION. HEEL RAISER PRO BOOTS WHILE IN BED. WHEEL CHAIR CUSION WHEN OUT OF BED.
--- NOTE | 2018-05-05 15:14 | NUR ---
case management visits with patient, discussed with him a short term shelter for rehab prior to going back home, patient declined a SNF, also discussed with him VNA and he didn't think he needed any at this time, case management will follow
[2018-05-05 16:00] VITALS: BP 156/78
[2018-05-05 20:00] VITALS: BP 138/83
[2018-05-06] VITALS: BP 136/73
--- NOTE | 2018-05-06 06:00 | NUR ---
PT AWAKE, ALERT AND ORIENTED. SITTING UP IN CHAIR. NO COMPLAINTS THROUGHOUT SHIFT. RESPIRATIONS EASY AND UNLABORED ON ROOM AIR. BLOOD SUGAR 74, PT C/O NOTHING AT THIS TIME. AM MEDS TAKEN WITH EASE. ALL SAFETY MEASURES IN PLACE. CALL LIGHT IN REACH.
[2018-05-06 06:24] LABS: BASO # 0.1 10*3/uL (0.0-0.1); BASO % 0.8 % (0.0-1.0); EOS # 0.3 10*3/uL (0.0-0.4); EOS % 4.3 % (1.0-4.0); HEMATOCRIT 39.3 % (42.0-52.0); HEMOGLOBIN 12.4 g/dl (14.0-18.0); LYMPH # 1.2 10*3/uL (1.3-4.4); LYMPH % 17.5 % (27.0-41.0); MEAN CELL VOLUME 91.8 fl (80.0-94.0); MEAN CORPUSCULAR HGB CONC 31.6 g/dl (33.0-37.0); MEAN PLATELET VOLUME 13.5 fl (9.6-12.3); MONO # 0.5 10*3/uL (0.1-1.0); MONO % 7.2 % (3.0-9.0); NEUT # 4.6 10*3/uL (2.3-7.9); PLATELET COUNT AUTOMATED 134 10*3/uL (130-400); RED BLOOD COUNT 4.28 10*6/uL (4.50-5.90); RED CELL DISTRI WIDTH 15.5 % (0-14.5); WHITE BLOOD COUNT 6.6 10*3/uL (4.8-10.8)
[2018-05-06 06:58] LABS: CREATININE 2.65 mg/dL (0.70-1.30); POTASSIUM 3.7 mmol/L (3.5-5.1)
--- NOTE | 2018-05-06 07:10 | NUR ---
PT AWAKE. BEDSIDE REPORT RECEIVED FROM SALINAS PORTILLO. NO PT QUESTIONS OR CONCERNS AT THIS TIME. BED LOW
--- NOTE | 2018-05-06 07:30 | NUR ---
PT AWAKE. BEDSIDE REORT RECEIVED FROM SCOTT PORTILLO. NO PT QUESTIONS OR CONCERNS AT THIS TIME. CALL JARAMILLO IN REACH
[2018-05-06 08:00] VITALS: BP 130/74
[2018-05-06 12:00] VITALS: BP 138/78
[2018-05-06 16:00] VITALS: BP 122/75
[2018-05-06 20:00] VITALS: BP 115/79
[2018-05-07] VITALS: BP 117/79
--- NOTE | 2018-05-07 06:00 | NUR ---
PT AWAKE, ALERT AND PLEASANT WITH STAFF. BLOOD SUGAR OBTAINED, 138. NO COVERAGE NEEDED PER ORDERS. AM MEDICATION TAKEN WITH EASE. NO S/S OF DISTRESS. PT BED CHANGED BY PATIENT ATTENDANTS FOR EPISODE OF BOWEL INCONTINENCE. ALL SAFETY MEASURES IN PLACE. CALL LIGHT IN REACH.
[2018-05-07 06:47] LABS: INTERNATIONAL NORM RATIO 1.9 (2.0-3.5)
[2018-05-07 06:48] LABS: CREATININE 2.58 mg/dL (0.70-1.30); POTASSIUM 3.7 mmol/L (3.5-5.1)
[2018-05-07 08:00] VITALS: BP 120/64
--- NOTE | 2018-05-07 12:39 | NUR ---
Discharge instructions reviewed with patient/family. Patient receptive and verbalizes understanding. Follow-up care arranged. Written instructions given to patient/family. MALIA SAMUELS
== END 2018-05-07 12:39 | disposition home or self-care (01) | DRG 640 ==
LOC: ED 15:38 → 4E 17:46 → EDHOLD 17:46 → 4E 17:54
PROVIDERS: Family Medicine; Internal Medicine; Nurse Practitioner Family; Student in an Organized Health Care Education/Training Program; ADMIT Internal Medicine
DX: E87.1 Hypo-osmolality and hyponatremia (principal); N17.0 Acute kidney failure with tubular necrosis; E44.0 Moderate protein-calorie malnutrition; I13.0 Hypertensive heart and chronic kidney disease with heart failure and stage 1 through stage 4 chronic kidney disease, or unspecified chronic kidney disease; I48.2 Chronic atrial fibrillation; E87.2 Acidosis; Z79.899 Other long term (current) drug therapy; E11.51 Type 2 diabetes mellitus with diabetic peripheral angiopathy without gangrene; R79.1 Abnormal coagulation profile; L89.151 Pressure ulcer of sacral region, stage 1; L89.612 Pressure ulcer of right heel, stage 2; R74.8 Abnormal levels of other serum enzymes; E87.8 Other disorders of electrolyte and fluid balance, not elsewhere classified; I25.10 Atherosclerotic heart disease of native coronary artery without angina pectoris; L89.522 Pressure ulcer of left ankle, stage 2; E86.1 Hypovolemia; E11.22 Type 2 diabetes mellitus with diabetic chronic kidney disease; E11.65 Type 2 diabetes mellitus with hyperglycemia; N18.3 Chronic kidney disease, stage 3 (moderate); I50.9 Heart failure, unspecified; E03.9 Hypothyroidism, unspecified; Z79.01 Long term (current) use of anticoagulants; Z68.23 Body mass index [BMI] 23.0-23.9, adult; Z95.0 Presence of cardiac pacemaker; Z95.5 Presence of coronary angioplasty implant and graft; Z79.4 Long term (current) use of insulin

== ENCOUNTER 2018-05-24 15:53 | Inpatient (IN) | payer OTHER ==
[~2018-05-24] VITALS: Ht 180.3 cm; Wt 84.0 kg
--- NOTE | ~2018-05-24 | CON ---
[place], [place] REPORT OF CONSULTATION NAME: ANA CHOPRA JR [facility] #: [id number] UNIT #: [id number] ROOM: 523 DOCTOR: BEAU MONET [facility] BIRTHDATE: [birth year] DOS: 05/28/2018 CARDIOLOGY CONSULTATION The patient came to the [facility] through the Emergency Room. The patient apparently has some lightheadedness and near syncope. The patient has history of generalized weakness, insulin-dependent diabetes mellitus, coronary artery disease and chronic atrial fibrillation, hypothyroidism. The patient with severe peripheral artery disease, peripheral vascular studies were abnormal, hypertension with hypertensive cardiovascular disease, CKD stage 4, dyslipidemia, symptomatic peripheral artery disease. Flow frequencies are diminished to both lower extremities, severe disease of both the left and right lower extremities is considered, appears to be hemodynamically significant. Consulted me for evaluating and possible further intervention to improve the peripheral vascular status in both lower extremities. No deep vein thrombus was noted with a venous Doppler on both sides. I informed the patient and given a consent from the patient and the family and hospitalist and podiatry, consideration may be given abdominal aortogram and aortobifemoral angiogram with distal runoff and possible intervention. Options, procedure, complications, morbidity, mortality risks were explained. Thank you very much for asking me to see the patient. We will follow the patient. CHAU YANEZ MD CM:CONSTR:REPORT OF CONSULTATION 1809 06/05/18 0842 interface
[~2018-05-24 15:53] MED LIST changes: +TRAD5TAB1 PO
[2018-05-24 16:00] VITALS: BP 154/84
[2018-05-24] MEDS ORDERED: COUMADIN2.5 M1 PO (17:52)
[2018-05-24] MEDS ORDERED: ALLOPURINOL100 MG PO (17:54)
[2018-05-24] MEDS ORDERED: COREG6.25 MG PO (17:55)
[2018-05-24] MEDS ORDERED: LASIX40 MG PO (17:57)
[2018-05-24] MEDS ORDERED: LASIX80 MG PO (17:57)
[2018-05-24] MEDS ORDERED: BASAG SOL SC (18:00)
[2018-05-24 19:32] LABS: BASO # 0.1 10*3/uL (0.0-0.1); BASO % 0.8 % (0.0-1.0); EOS # 0.1 10*3/uL (0.0-0.4); EOS % 1.8 % (1.0-4.0); HEMATOCRIT 37.8 % (42.0-52.0); HEMOGLOBIN 11.9 g/dl (14.0-18.0); LYMPH # 0.7 10*3/uL (1.3-4.4); LYMPH % 11.3 % (27.0-41.0); MEAN CELL VOLUME 92.2 fl (80.0-94.0); MEAN CORPUSCULAR HGB CONC 31.5 g/dl (33.0-37.0); MEAN PLATELET VOLUME 13.4 fl (9.6-12.3); MONO # 0.4 10*3/uL (0.1-1.0); MONO % 6.6 % (3.0-9.0); NEUT # 4.8 10*3/uL (2.3-7.9); NEUT % 79.2 % (47.0-73.0); PLATELET COUNT AUTOMATED 125 10*3/uL (130-400); RED CELL DISTRI WIDTH 16.2 % (0-14.5); WHITE BLOOD COUNT 6.1 10*3/uL (4.8-10.8)
[2018-05-24 19:45] LABS: ACT PARTIAL THROMBO TIME 37.3 SECONDS (20.8-31.5); INTERNATIONAL NORM RATIO 3.8 (2.0-3.5)
[2018-05-24 19:53] LABS: ALBUMIN 3.2 gm/dl (3.1-4.5); CREATININE 3.77 mg/dL (0.70-1.30); POTASSIUM 3.6 mmol/L (3.5-5.1); TOTAL PROTEIN 6.5 gm/dL (6.4-8.2)
[2018-05-24 20:00] VITALS: BP 149/80
[2018-05-25] VITALS: BP 141/85
[2018-05-25 06:44] LABS: BASO # 0.1 10*3/uL (0.0-0.1); BASO % 0.8 % (0.0-1.0); EOS # 0.2 10*3/uL (0.0-0.4); EOS % 3.7 % (1.0-4.0); HEMOGLOBIN 12.4 g/dl (14.0-18.0); LYMPH # 0.9 10*3/uL (1.3-4.4); LYMPH % 13.7 % (27.0-41.0); MEAN CELL VOLUME 91.5 fl (80.0-94.0); MEAN CORPUSCULAR HGB 29.1 pg (27.0-31.0); MEAN CORPUSCULAR HGB CONC 31.8 g/dl (33.0-37.0); MEAN PLATELET VOLUME 12.9 fl (9.6-12.3); MONO # 0.5 10*3/uL (0.1-1.0); MONO % 7.4 % (3.0-9.0); NEUT # 4.6 10*3/uL (2.3-7.9); NEUT % 74.1 % (47.0-73.0); PLATELET COUNT AUTOMATED 132 10*3/uL (130-400); RED BLOOD COUNT 4.26 10*6/uL (4.50-5.90); RED CELL DISTRI WIDTH 16.1 % (0-14.5); WHITE BLOOD COUNT 6.2 10*3/uL (4.8-10.8)
[2018-05-25 07:18] LABS: INTERNATIONAL NORM RATIO 3.5 (2.0-3.5)
[2018-05-25 07:19] LABS: CREATININE 3.67 mg/dL (0.70-1.30); PHOSPHOROUS 3.4 mg/dL (2.5-4.9); POTASSIUM 3.1 mmol/L (3.5-5.1); TOTAL PROTEIN 6.6 gm/dL (6.4-8.2)
[2018-05-25 08:00] VITALS: BP 116/56
[2018-05-25 10:32] LABS: BILIRUBIN NEGATIVE (NEGATIVE); BLOOD NEGATIVE (NEGATIVE); CLARITY SL CLOUDY (CLEAR); COLOR YELLOW (YELLOW); GLUCOSE NEGATIVE (NEGATIVE); KETONE NEGATIVE (NEGATIVE); LEUKO ESTERASE NEGATIVE (NEGATIVE); NITRITE NEGATIVE (NEGATIVE); PH 5.5 (5.0-9.0); UROBILINOGEN 0.2 E.U./dl (0.2-1.0)
[2018-05-25 11:18] LABS: BACTERIA 2+; RBC 0-2 rbc/hpf (0-2)
[2018-05-25 12:00] VITALS: BP 124/67
[2018-05-25 16:00] VITALS: BP 100/82
[2018-05-25 20:00] VITALS: BP 134/78
[2018-05-26] VITALS: BP 122/75
[2018-05-26 06:40] LABS: BASO % 0.7 % (0.0-1.0); EOS # 0.2 10*3/uL (0.0-0.4); EOS % 3.5 % (1.0-4.0); HEMATOCRIT 37.2 % (42.0-52.0); HEMOGLOBIN 12.2 g/dl (14.0-18.0); LYMPH # 0.8 10*3/uL (1.3-4.4); LYMPH % 13.1 % (27.0-41.0); MEAN CELL VOLUME 91.6 fl (80.0-94.0); MEAN CORPUSCULAR HGB CONC 32.8 g/dl (33.0-37.0); MEAN PLATELET VOLUME 12.8 fl (9.6-12.3); MONO # 0.4 10*3/uL (0.1-1.0); MONO % 6.8 % (3.0-9.0); NEUT # 4.6 10*3/uL (2.3-7.9); NEUT % 75.6 % (47.0-73.0); PLATELET COUNT AUTOMATED 135 10*3/uL (130-400); RED BLOOD COUNT 4.06 10*6/uL (4.50-5.90); RED CELL DISTRI WIDTH 16.3 % (0-14.5)
[2018-05-26 06:48] LABS: INTERNATIONAL NORM RATIO 2.2 (2.0-3.5)
[2018-05-26 07:13] LABS: ALBUMIN 2.9 gm/dl (3.1-4.5); CREATININE 3.3 mg/dL (0.70-1.30); PHOSPHOROUS 3.6 mg/dL (2.5-4.9)
[2018-05-26 08:00] VITALS: BP 130/72
[2018-05-26 16:00] VITALS: BP 116/71
[2018-05-26 20:00] VITALS: BP 122/93
[2018-05-27] VITALS: BP 113/67
[2018-05-27 06:37] LABS: INTERNATIONAL NORM RATIO 1.6 (2.0-3.5)
[2018-05-27 08:00] VITALS: BP 120/76
[2018-05-27 12:00] VITALS: BP 128/80
[2018-05-27 16:00] VITALS: BP 124/84
[2018-05-27 20:00] VITALS: BP 120/86
[2018-05-28] VITALS: BP 131/58
[2018-05-28 06:30] LABS: BASO % 0.3 % (0.0-1.0); EOS % 0.1 % (1.0-4.0); HEMATOCRIT 41.7 % (42.0-52.0); HEMOGLOBIN 13.6 g/dl (14.0-18.0); LYMPH # 0.7 10*3/uL (1.3-4.4); LYMPH % 8.7 % (27.0-41.0); MEAN CELL VOLUME 90.7 fl (80.0-94.0); MEAN CORPUSCULAR HGB 29.6 pg (27.0-31.0); MEAN CORPUSCULAR HGB CONC 32.6 g/dl (33.0-37.0); MEAN PLATELET VOLUME 12.7 fl (9.6-12.3); MONO # 0.3 10*3/uL (0.1-1.0); MONO % 3.5 % (3.0-9.0); NEUT # 6.7 10*3/uL (2.3-7.9); PLATELET COUNT AUTOMATED 152 10*3/uL (130-400); RED CELL DISTRI WIDTH 16.9 % (0-14.5); WHITE BLOOD COUNT 7.7 10*3/uL (4.8-10.8)
[2018-05-28 06:34] LABS: INTERNATIONAL NORM RATIO 1.3 (2.0-3.5)
[2018-05-28 06:51] LABS: CREATININE 2.78 mg/dL (0.70-1.30)
[2018-05-28 08:00] VITALS: BP 145/90
[2018-05-28 12:00] VITALS: BP 148/92
[2018-05-28 16:00] VITALS: BP 133/79
[2018-07-02] MEDS ORDERED: APRESOLINE10 MG PO (13:56)
[2018-07-13] MEDS ORDERED: COUMADIN3 M1 PO (18:49)
[2018-07-13] MEDS ORDERED: K-TAB10 MEQ PO (18:50)
[2018-07-13] MEDS ORDERED: DEMADEX20 M1 PO (18:51)
[2018-07-13] MEDS ORDERED: ALDACTONE25 M1 PO (18:52)
[2018-07-15] MEDS ORDERED: METOPROLOL SUCC25 M2 PO (14:11)
== END 2018-05-28 17:32 | disposition other institution (70) | DRG 948 ==
LOC: 5E 15:53
PROVIDERS: Internal Medicine; Internal Medicine Nephrology; Registered Nurse; ADMIT Emergency Medicine
PROC: 0HBRXZZ Excision of Toe Nail, External Approach (ICD-10-PCS; principal; 2018-05-26)
DX: R53.1 Weakness (principal); D68.59 Other primary thrombophilia; E87.1 Hypo-osmolality and hyponatremia; N18.4 Chronic kidney disease, stage 4 (severe); E44.1 Mild protein-calorie malnutrition; N39.0 Urinary tract infection, site not specified; I48.2 Chronic atrial fibrillation; E03.9 Hypothyroidism, unspecified; D64.9 Anemia, unspecified; R29.6 Repeated falls; E78.5 Hyperlipidemia, unspecified; E11.51 Type 2 diabetes mellitus with diabetic peripheral angiopathy without gangrene; B35.1 Tinea unguium; L89.892 Pressure ulcer of other site, stage 2; I13.10 Hypertensive heart and chronic kidney disease without heart failure, with stage 1 through stage 4 chronic kidney disease, or unspecified chronic kidney disease; E11.65 Type 2 diabetes mellitus with hyperglycemia; E11.22 Type 2 diabetes mellitus with diabetic chronic kidney disease; I25.10 Atherosclerotic heart disease of native coronary artery without angina pectoris; Z95.0 Presence of cardiac pacemaker; Z95.5 Presence of coronary angioplasty implant and graft; Z79.899 Other long term (current) drug therapy; Z79.4 Long term (current) use of insulin; Z79.01 Long term (current) use of anticoagulants

== ENCOUNTER 2018-06-21 01:28 | Inpatient (IN) | payer OTHER ==
[~2018-06-21] VITALS: Ht 180.3 cm; Wt 83.7 kg
[2018-06-21] VITALS (10 sets, daily range): BP systolic 98–131; BP diastolic 52–81
--- NOTE | ~2018-06-21 | PR ---
[place], [place] PROGRESS NOTE NAME: ANA CHOPRA JR [facility] #: [id number] UNIT #: [id number] ROOM: 412 DOCTOR: TERESA REGAN MD,ZAID BIRTHDATE: [birth year] DOS: 06/22/2018 SUBJECTIVE: The patient was noted comfortable at this time, still complaining of symptoms of shortness breath at rest. He does report mild nonproductive cough. Denies symptoms of chest pain or hemoptysis. Denies symptoms of nausea, vomiting, diarrhea, abdominal pain, hematemesis, melena, or hematochezia. Denies symptoms of fever or chills. The patient denies symptoms of headache or diplopia. Remaining systems reviewed, limited and noted negative. OBJECTIVE: VITAL SIGNS: Normal temperature, respiratory rate 18, heart rate of 64, blood pressure 111/65. Pulse ox saturation on room air 93% saturation. HEENT: Age-related changes. Head was atraumatic. Eyes nonicterus. NECK: Supple. CARDIOVASCULAR: S1, S2 audible. LUNGS: The patient with decreased breath sounds in the lower portion of the lungs bilaterally. ABDOMEN: Soft, nontender. Bowel sounds present. EXTREMITIES: The patient with chronic changes, mild edema. MUSCULOSKELETAL: Without acute deformities. SKIN: Dryness of the skin of the lower extremities. CENTRAL NERVOUS SYSTEM: Apparently, no gross focal neurologic deficit. LABORATORY DATA: PT/INR was 2.8, which is therapeutic. CBC this morning: WBC count normal, hemoglobin 10.5, platelet count were normal. CMP this morning, BUN 39, creatinine 2.52. Albumin 2.6. IMPRESSION: 1. The patient who has been currently noted with moderate to large pleural fluid with acute congestive heart failure with systolic dysfunction. 2. Anticoagulation noted stable in the therapeutic range. 3. The patient with increased BUN and creatinine. The patient with acute kidney injury, possible underlying chronic kidney disease as well. PLAN OF THERAPY: The patient was ordered thoracentesis to be done tomorrow morning if he continued to have persistent pleural fluid. Assessment to be done by the Interventional Radiology Services. Reversal of the INR to be done if he determined to be a thoracentesis performed by the Interventional Radiology Services. Continue diuretic, but closely monitor BUN and creatinine. There was no worsening of the kidney function noted actually partial improvement was noted. The intake and output were not noted accurate as the patient unable to determine if the patient was truly noted with negative for balance of adequate diuresis. Supportive care. [place], [place] PROGRESS NOTE NAME: KEYSHA ANA CUMMINGS UNIT #: [id number] ROOM: [facility] DOCTOR: ZADI HUMPHREYS MD BIRTHDATE: [birth year] ZAID MOORE MD CM:PNTRANS [phone] ZAID REGAN MD 06/22/181956 interface
--- NOTE | ~2018-06-21 | PR ---
[place], [place] PROGRESS NOTE NAME: ANA CHOPRA JR UNIT #: [id number] ROOM: 412 DOCTOR: ZAID HUMPHREYS MD BIRTHDATE: [birth year] DOS: 06/21/2018 ADDENDUM PLAN OF TREATMENT: Continue diuretic therapy. Oxygen supplementation if necessary. Continue to maximize the management of congestive heart failure. ZAID MOORE MD CM:ROBERT [phone] ZAID REGAN MD 07/05/18 0731 interface
--- NOTE | ~2018-06-21 | PR ---
[place], [place] PROGRESS NOTE [facility]: [id number] UN[facility] #: [id number] ROOM: 412 DOCTOR: TERESA REGAN MD,ZAID BIRTHDATE: [birth year] DOS: 06/24/2018 SUBJECTIVE: The patient noted fully awake and alert this morning. Not using oxygen supplementation this morning of assessment. Denies symptoms of chest pain, coughing or acute shortness of breath at rest. OBJECTIVE: VITAL SIGNS: For the patient, which are recorded shows a normal temperature, respiratory rate 20, heart rate of 78, blood pressure 131/70-124/90. Intake for 440, output 651 mL recorded. Pulse oxygen saturation on room air was 98% saturation at rest. HEENT: Examination shows head was atraumatic. Eyes nonicterus. NECK: Supple. CARDIOVASCULAR: S1, S2 audible. LUNGS: Decreased breaths in the lower lungs. There were no wheezing or crackles. ABDOMEN: Soft, nontender. Bowel sounds are present. EXTREMITIES: No acute change. LABORATORY DATA: In the BMP today: BUN was recorded as 40, creatinine 2.24. IMPRESSION: The patient with: 1. Resolving acute congestive heart failure with pleural fluid progressively with chronic kidney disease that seemed to be stable at the present time. 2. Elderly age. PLAN OF MANAGEMENT: Continuation of the diuretic for congestive heart failure per Cardiology Services. Discharge planning could be started whenever it is necessary. Bronchodilators. Other therapy, plan of management, care plan of treatments. Monitor chest x-ray to be done intermittently as needed. ZAID MOORE MD CM:PNTRANS [phone] ZAID REGAN MD 07/05/18 0730 interface
--- NOTE | ~2018-06-21 | PR ---
[place], [place] PROGRESS NOTE [facility] [id number] #: [id number] ROOM: 412 DOCTOR: TERESA REGAN MD,ZAID BIRTHDATE: [birth year] DOS: 06/25/2018 PULMONARY PROGRESS NOTE SUBJECTIVE: The patient remains comfortable at this time, resting on the chair. He had not been reported symptoms of fever or chills or hemoptysis. OBJECTIVE: VITAL SIGNS: This morning as a normal temperature, respiratory rate of 18, heart rate of 98, blood pressure 120/60. The pulse ox saturation at rest on room air 99% saturation. HEENT: Examination shows head was atraumatic. Eyes: No icterus. NECK: Supple. CARDIOVASCULAR: S1, S2 is audible. LUNGS: Without any crackle, rhonchi, or wheezing. ABDOMEN: Soft, nontender. Bowel sounds present. IMPRESSION: 1. Resolution of the pleural fluid, acute congestive heart failure and other respiratory symptoms with conservative treatment. 2. Resolving acute kidney injury as well. PLAN OF MANAGEMENT: No changes in the plan of care at this time. Continuation of current therapy at this time, plan of management. The patient has been planned for discharge to the nursing facility today. ZAID MOORE MD CM:PNTRANS [phone] ZAID REGAN MD 06/26/18 0257 interface
--- NOTE | ~2018-06-21 | PR ---
[place], [place] PROGRESS NOTE [id number] UN[facility] #: [id number] ROOM: 412 DOCTOR: TERESA REGAN MD,ZAID BIRTHDATE: [birth year] DOS: 06/23/2018 SUBJECTIVE: Continued to be diuresed at this time. Has not been noted any ongoing acute respiratory complaints. The patient does not have any symptoms of chest pain or sputum expectoration noted awake, alert, cooperative. OBJECTIVE: VITAL SIGNS: For the patient this morning he is in normal temperature, respiratory rate 20, heart rate 72, blood pressure 120/60-134/68. Pulse ox saturation at rest on room air 98% saturation. HEENT: Head was atraumatic. Eyes nonicterus. NECK: Supple. CARDIOVASCULAR: S1, S2 is audible. LUNGS: Noted with decreased breath sounds at the lung base. There was no wheezing or crackles. ABDOMEN: Soft, nontender. EXTREMITIES: Improvement of the edema of the lower extremities. LABORATORY DATA: BMP this morning, BUN 38, creatinine 2.39. PT/INR is 2.7, which is therapeutic. CBC this morning, WBC count 5.8, hemoglobin 10.4 and platelet count was normal. Chest x-ray that was completed this morning shows resolving pleural effusion. IMPRESSION: Improving pleural fluid at this time with the diuretic therapy, conservative treatment. Thoracentesis was ordered would not be needed at this time or assessment since the patient's pleural fluid has been improving progressively. Other plan of management, care plan to be done based on the progression of the illness. ZAID MOORE MD CM:PNTRANS [phone] ZAID REGAN MD 06/28/18 1644 interface
--- NOTE | ~2018-06-21 | EKG ---
[place], [place] ELECTROCARDIOGRAM REPORT NAME: ANA CHOPRA JR UNIT #: [id number] ROOM: 412 DOCTOR: SAM DRAFT REPORT BIRTHDATE: [birth year] [facility] Test Date: 2018-06-21 Test Time: 02:09:27 Pat Name: ANA CHOPRA Department: Room: 412 Gender: M Music Manager: Ani Brantley : 1930 Requested By: FISH BAUM Order Number: [id number] Reading MD: Federico Kuo MD Measurements Intervals [place] Rate: 67 P: ND: QRS: 35 QRSD: 121 T: 195 QT: 410 QTc: 433 Interpretive Statements Atrial fibrillation Probable LVH with secondary repol abnrm Compared to ECG 05/04/2018 21:52:37 Ventricular premature complex(es) no longer present Electronically Signed On 06-21-2018 11:51:51 PDT by Federico Kuo MD CM:EKGRPT:ELECTROCARDIOGRAM REPORT [id number] FISH CABA DRAFT REPORT FISH BAUM DO
--- NOTE | ~2018-06-21 | CON ---
[place], [place] REPORT OF CONSULTATION [facility]: [facility] [id number] UNIT #: [id number] ROOM: 412 DOCTOR: ZAID HUMPHREYS MD BIRTHDATE: [birth year] DOS: 06/21/2018 PULMONARY CONSULTATION AND EVALUATION REFERRING PHYSICIAN AND REASON FOR CONSULTATION: Requested by hospitalist service for assessment of pleural effusion. HISTORY OF PRESENT ILLNESS: An 87-year-old white male who was seen on the date of 06/21/2018. The patient has been admitted to the hospitalist service on 06/20/2018. He has been brought to the hospital with change in mental status. The patient resides in [facility]. He has not been able to give me a good clear history when we asked questions. History is quite limited, history is from medical record documentation on this hospitalization and some of the previous records as well. The patient developed change in mental status as per EMS with increased lethargy at the nursing facility. He has been brought to the hospital. When the patient was assessed, he was noted with bilateral pleural fluid on chest x-ray. CT scan of chest was also later performed confirming the bilateral pleural effusions. The patient denies symptoms of coughing. He was not stating any symptoms of shortness of breath or hemoptysis. REVIEW OF SYSTEMS: Could not be completed effectively because of difficulty of conversation and understanding from the patient's standpoint at this time. PAST MEDICAL HISTORY: Noted as: 1. Congestive heart failure with severe systolic dysfunction, left ventricular ejection fraction of 20%, which was noted on this admission as well. 2. The patient with history of coronary artery disease. 3. History of permanent atrial fibrillation. 4. 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 5. Chronic anticoagulation. 6. Hypothyroidism. 7. Type 2 diabetes mellitus. 8. Cardiac dysrhythmia with pacemaker. 9. Peripheral arterial disease. PAST SURGICAL HISTORY: Reported as: 1. Cardiac catheterization and stents insertion. 2. Pacemaker insertion. SOCIAL HISTORY: The patient is reported a nonsmoker. There is no alcohol use or illicit drug use. FAMILY HISTORY: Reported both parents at the age of 90 plus years from old age. MEDICATIONS: Listed from nursing facility on admission are Tylenol, allopurinol, aspirin, Coreg, Plavix, ferrous sulfate, folic acid, Lasix, Lantus insulin, levothyroxine, omeprazole, pravastatin, temazepam, and Coumadin. DRUG ALLERGY HISTORY: The patient was noted no known drug allergies. [place], [place] REPORT OF CONSULTATION NAME: ANA CHOPRA JR UNIT #: [id number] ROOM: [facility] DOCTOR: TERESA REGAN MD,ZAID BIRTHDATE: [birth year] PHYSICAL EXAMINATION: GENERAL: An 87-year-old male who has been currently resting comfortably, eating breakfast. He does not show any acute apparent distress, using oxygen supplementation through nasal cannula. Height of 5 feet 11 inches, weight of 186 pounds, BMI 25. VITAL SIGNS: Normal temperature, respiratory rate 18-20, heart rate of 67-64, blood pressure 118/80 to 148/92. Pulse oxygen saturation was recorded as 98% saturation on 100% oxygen. HEENT: Shows head was atraumatic, eyes nonicterus. NECK: Supple. CHEST: Decreased breath sounds noted in the lower portion of the lungs bilaterally. There were no wheezing or crackles heard. ABDOMEN: Soft, nontender, flat. EXTREMITIES: The patient was noted with chronic changes with mild edema. VISIBLE SKIN: Dryness of skin without any lesions or rashes. Some scattered bruising, most likely related to prednisone would be considered. CENTRAL NERVOUS SYSTEM: Apparently, no gross focal deficit. General weakness was noted. Exam is limited. MUSCULOSKELETAL: Without any acute deformities. LABORATORY AND DIAGNOSTIC DATA: INR was 1.8 on 06/19/2018 done as an outpatient. INR on 06/20/2018 was 1.9. PT/INR, PTT done this morning, INR was therapeutic at 2.0, PTT 38 and mildly elevated. CMP today, BUN of 40, creatinine 2.63. Sodium 135 on admission. Albumin is 2.9. BUN and creatinine on 06/19/2018 with BUN 38, creatinine 2.47 recorded at that time. Magnesium and phosphorus that were done this morning show normal magnesium and phosphorus 3.6. Troponin is minimally elevated at 0.048, the second set of troponin was 0.055. Echocardiogram with severely left ventricular ejection fraction reduced to 20%. IMPRESSION: 1. The patient has been currently admitted to the hospital, noted progressive respiratory symptoms changes with change in mental status related to acute congestive heart failure with severe systolic dysfunction and acute congestive heart failure with bilateral pleural fluid seen on the CT scan of the chest. The CT scan of chest review was done without contrast, limiting the mediastinal structure view, but there was no gross visible lymph nodes noted in the mediastinum. 2. The patient with elderly age with permanent atrial fibrillation as well. 3. Chronic anticoagulation, noted therapeutic INR today. 4. The patient with history of coronary artery disease, peripheral artery disease and multiple other comorbid condition noted in the past history. 5. The patient with acute on chronic kidney injury is also noted related to congestive heart failure, decreased perfusion, and prerenal azotemia. PLAN OF MANAGEMENT: The patient has already been asked for Cardiology consultation. He will require diuretic therapy at the present time. Kidney function assessment might be needed by the Nephrology Service. Monitor pleural fluid as well. If the patient would be noted with worsening of kidney function, would be recommended thoracentesis, thoracentesis is to be done by the [place], [place] REPORT OF CONSULTATION NAME: ANA CHPORA JR UNIT #: [id number] ROOM: [facility] DOCTOR: ZAID HUMPHREYS MD BIRTHDATE: [birth year] Interventional Radiology Service whenever necessary. At this time, conservative treatment will be continued and there is no immediate need of thoracentesis. Other treatment therapy and plan of management to be continued. There was no evidence of acute pneumonia suspected with current assessment. No antibiotics would be needed. Maximize the other medical management based on progression of the illness. There is no good intake and output so far recorded, close intake and output monitoring would be recommended. Thanks for allowing me to participate in the care of this patient. ADDENDUM PLAN OF TREATMENT: Continue diuretic therapy. Oxygen supplementation if necessary. Continue to maximize the management of congestive heart failure. ZAID MOORE MD CM:CONSTR:REPORT OF CONSULTATION 1458 06/24/18 1927 interface
[~2018-06-21 01:28] MED LIST changes: +BASAG SOL SC; +COREG6.25 MG PO; +COUMADIN2.5 M1 PO; +LASIX80 MG PO
[2018-06-21 02:05] LABS: BASO # 0.1 10*3/uL (0.0-0.1); BASO % 1.2 % (0.0-1.0); EOS # 0.2 10*3/uL (0.0-0.4); EOS % 4.3 % (1.0-4.0); LYMPH # 0.9 10*3/uL (1.3-4.4); LYMPH % 17.6 % (27.0-41.0); MEAN CELL VOLUME 96.2 fl (80.0-94.0); MEAN CORPUSCULAR HGB 30.2 pg (27.0-31.0); MEAN CORPUSCULAR HGB CONC 31.4 g/dl (33.0-37.0); MEAN PLATELET VOLUME 11.5 fl (9.6-12.3); MONO # 0.3 10*3/uL (0.1-1.0); MONO % 5.5 % (3.0-9.0); NEUT # 3.6 10*3/uL (2.3-7.9); NEUT % 71.2 % (47.0-73.0); PLATELET COUNT AUTOMATED 144 10*3/uL (130-400); RED BLOOD COUNT 3.64 10*6/uL (4.50-5.90); RED CELL DISTRI WIDTH 19.2 % (0-14.5); WHITE BLOOD COUNT 5.1 10*3/uL (4.8-10.8)
[2018-06-21 02:18] LABS: ACT PARTIAL THROMBO TIME 38.7 SECONDS (20.8-31.5)
--- NOTE | 2018-06-21 02:18 | NUR ---
RECEIVED REPORT FROM LETICIA PORTILLO, INFORMED I AM TAKING MY BREAK, KRISTI GIVEN INFO ON THIS PATIENT WHILE IM ON BREAK
[2018-06-21 02:28] LABS: ALBUMIN 2.9 gm/dl (3.1-4.5); CREATININE 2.63 mg/dL (0.70-1.30); TROPONIN I 0.043 ng/ml (<0.045)
--- NOTE | 2018-06-21 02:55 | NUR ---
RETURNED FROM BREAK
--- NOTE | 2018-06-21 03:17 | NUR ---
SPOKE WITH DR OWENS REGARDING UNAVAILABLE LEVOTHYROXINE 200MCG IV INFORMED DR BAUM REQUESTED WE DISCUSS THIS MATTER WITH DR DOMINGUEZ, DR OWENS TO PAGE DR DOMINGUEZ AND HAVE HIM RETURN OUR CALL
--- NOTE | 2018-06-21 03:25 | NUR ---
NOTIFIED [facility] SPOKE WITH UMESH, INFORMED OF ADMISSION PLANS
--- NOTE | 2018-06-21 03:25 | NUR ---
AWAITNING CALL FROM DR DOMINGUEZ, TO INFORM OF LEVOTHYROXINE IV NOT AVAIL UNTIL PHARMACY COMES IN
--- NOTE | 2018-06-21 03:35 | NUR ---
PT ASKED IN A CLEAR VOICE, "WHAT THEY GONNA DO WITH ME?" I EXPLAINED PLAN FOR ADMISSION, HE SAID, "WHERE, UPSTAIRS?" PT DENIES SOB, CHEST PAIN OR OTHER COMPLAINTS, "JUST TIRED"
[2018-06-21] MEDS ORDERED: LEVOTHYROXINE150 MCG PO (03:52)
[2018-06-21] MEDS ORDERED: TEMAZEPAM15 M1 PO (03:53)
[2018-06-21] MEDS ORDERED: COLACE100 MG PO (03:53)
[2018-06-21] MEDS ORDERED: WARFARIN SODIUM6 MG PO (03:54)
[2018-06-21] MEDS ORDERED: HEPARIN SO5000 UNIT1 IJ (03:55)
[2018-06-21] MEDS ORDERED: ASPIRIN ADULT L81 M2 PO (03:56)
[2018-06-21] MEDS ORDERED: LANTUS SOL100 UNIT/1 SQ (03:57)
[2018-06-21] MEDS ORDERED: LASIX20 MG PO (03:58)
--- NOTE | 2018-06-21 03:59 | NUR ---
PT TO CT AND BACK PT TOLERATED WELL
--- NOTE | 2018-06-21 04:28 | NUR ---
INFORMED DR BAUM OF WOUNDS AND NEEDING STAGED
--- NOTE | 2018-06-21 04:35 | NUR ---
A 87, admitted to , under the services of JOSUÉ Low DO with a diagnosis of MYXEDEMA COMA, ALTERED MENTAL STATUS. Chief complaint is SENT HERE FROM [facility] WITH INCREASED LETHARGY. Patient arrived via stretcher from ER. Monitor applied. Initial assessment completed. Vital signs taken and recorded. JOSUÉ LOW DO notified of admission to the unit. Orders received. See assessment for past medical history, medications and allergies. Patient and/or family oriented to unit. [facility]. visitation policy reviewed. Clothing/patient valuable form completed. JOAQUINA PAULINO
--- NOTE | 2018-06-21 06:04 | NUR ---
CALLED AND SPOKE WITH DR CORREA ABOUT CLARIFYING BUMEX DOSING,NOTIFIED CYTOMEL NOT AVAILABLE UNTIL OUR PHARMACY COMES AND BLOOD SUGAR 58 WITH AMP OF 50%DEXTROSE GIVEN.SAID HE WOULD SPEAK WITH DR DOMINGUEZ AND CALL BACK.
--- NOTE | 2018-06-21 06:10 | NUR ---
DR. CORREA CALLED BACK AND OKAY TO GIVEN BUMEX 1MG IV BID, AND OK FOR CYTOMEL BE GIVEN LATER.
[2018-06-21 06:13] LABS: PHOSPHOROUS 3.6 mg/dL (2.5-4.9)
--- NOTE | 2018-06-21 06:40 | NUR ---
CALLED AND NOTIFIED DR MOORE OF CONSULT AND HE WILL SEE PATIENT.
[2018-06-21 06:48] LABS: TROPONIN I 0.048 ng/ml (<0.045)
--- NOTE | 2018-06-21 06:49 | NUR ---
DR. MCPHERSON CONTACTED AT THIS TIME REGARDING CRITICAL TROPONIN OF 0.048.
--- NOTE | 2018-06-21 07:20 | NUR ---
ANA CHOPRA JR [id number] Please refer to the physician's history and physical for past medical history, comorbid conditions, and allergies. Diagnosis: MYXEDEMA COMA David Score: , WOUND DESCRIPTIONS: Location of the wound: left groin Thickness: Partial Size: 0.2cm x 0.7cm x 0.1cm Tunneling: none Undermining: none Sinus Tract: none Presence of Exudate: none Amount: none Color: Red Odor: None Periwound Skin Appearance: Normal Wound edges: approximated Pain (associated with wound): none at time of assessment How does patient state this happened? pt stated had procedure done unsure what they did thought Location of the wound: right groin Thickness: Full Size: 0.2cm x 0.6cm x <0.1cm Tunneling: none Undermining: none Sinus Tract: none Presence of Exudate: none Amount: None Color: Yellow, red Odor: None Periwound Skin Appearance: Erythema Wound edges: approximated Pain (associated with wound): none at time of assessment How does patient state this happened? pt stated had procedure done unsure what they did though Location of the wound: left foot 2nd toe proximal Thickness: Partial Size: 0.4cm x 0.3cm x 0.1cm Tunneling: none Undermining: none Sinus Tract: none Presence of Exudate: none Amount: None Color: Red Odor: None Periwound Skin Appearance: Normal Wound edges: approximated Pain (associated with wound): none at time of assessment How does patient state this happened? pt unable to state how this happened Location of the wound: left 2nd toe distal Thickness: Full Size: 0.3cm x 0.2cm x 0.1cm Tunneling: none Undermining: none Sinus Tract: none Presence of Exudate: none Amount: None Color: Black Odor: None Periwound Skin Appearance: Normal Wound edges: approximated Pain (associated with wound): none at time of assessment How does patient state this happened? pt unable to state how this happened Location of the wound: right foot 2nd toe Thickness: Partial Size: 0.5cm x 0.6cm x 0.1cm Tunneling: none Undermining: none Sinus Tract: none Presence of Exudate: none Amount: None Color: Red Odor: None Periwound Skin Appearance: Normal Wound edges: approximated Pain (associated with wound): none at time of assessment How does patient state this happened? pt unable to state how this happened Location of the wound: right coccyx Type of wound: stage 2 Thickness: Partial Size: 1.0cm x 1.0cm x 0.1cm Tunneling: none Undermining: none Sinus Tract: none Presence of Exudate: Serosanguineous Amount: Light Color: Red Odor: None Periwound Skin Appearance: Normal Wound edges: approximated Pain (associated with wound): none at time of assessment How does patient state this happened? pt unable to state how this happened Location of the wound: right ac Type of wound: skin tear Thickness: Full Size: 0.5cm x 1.2cm x <0.1cm Tunneling: none Undermining: none Sinus Tract: none Presence of Exudate: none Amount: None Color: Brown, red, yellow Odor: None Periwound Skin Appearance: ecchymotic Wound edges: approximated Pain (associated with wound): none at time of assessment How does patient state this happened? pt unable to state how this happened Patient has scar tissue noted to left and right thigh. No open areas noted at time of assessment. [place] and blanchable areas noted to bilateral thighs at time of assessment. No drainage noted. Abdomen has ecchymotic areas noted at time of assessment no open areas noted to abdomen. Bilateral heels are red and blanchable at time of assessment. No open areas noted or drainage noted to bilateral heels. Surface the patient is resting on: Isoflex SKIN PREVENTION RECOMMENDATION: 1. Pressure redistribution support surface as appropriate 2. Elevate heels 3. Remove boots/TEDS every shift and reapply 4. Head of bed 30 degrees as tolerated 5. Assess nutrition and hydration 6. Manage moisture 7. Avoid the use of containment devices while in bed 8. Use absorptive products on surfaces limit layers of linens on bed 9. Turn and reposition every 1-2 hours in bed and every 1 hour in chair as tolerated 10. Weight shifts every 15 minutes while up in chair 11. Offloading with pillows or device to keep heels elevated off bed 12. Monitor skin at least every shift 13. Inspect under medical devices twice a day WOUND TREATMENT RECOMMENDATIONS: venous and arterial studies to BLE's. Heel raiser pro boots to bilateral feet while out of bed. Wheelchair cushion when oob. Stage 2 guidelines: Cleanse right buttocks with nss and apply sureprep around the wound therahoney to wound bed and cover with optifoam gentle. Skin tear guidelines: Cleanse right ac with nss and apply sureprep around the wound therahoney to wound bed and cover with optifoam gentle. Apply sureprep to right 2nd toe, left 2nd toe proximal, left 2nd toe distal and cover with bandaid. Parital thickness guidelines: cleanse left groin with nss and apply sureprep around the wound therahoney to wound bed and cover with optifoam gentle. Full thickness guidelines: cleanse right groin with nss and apply sureprep around the wound therahoney to wound bed and cover with optifoam gentle.
--- NOTE | 2018-06-21 07:56 | NUR ---
Dr. Roberts notified of wound care recommendations.
[2018-06-21] MEDS ORDERED: BENADRYL ALLERG25 M5 PO (08:49)
[2018-06-21] MEDS ORDERED: OMEPRAZOLE20 M2 PO (08:53)
[2018-06-21] MEDS ORDERED: PRAVACHOL40 MG PO (08:54)
[2018-06-21] MEDS ORDERED: CLOPIDOGREL75 MG PO (09:00)
--- NOTE | 2018-06-21 09:00 | NUR ---
CALLED 'S OFFICE TO LEAVE MEESSAGE REGARDING CONSULT. GAVE NUMBER TO RETURN CALL.
[2018-06-21] MEDS ORDERED: DULCOLAX5 M1 PO (09:01)
[2018-06-21] MEDS ORDERED: MILK OF MA400 MG/5 M PO (09:02)
[2018-06-21] MEDS ORDERED: ZOFRAN4 MG PO (09:02)
[2018-06-21] MEDS ORDERED: ACETAMINOPHEN325 M2 PO (09:03)
--- NOTE | 2018-06-21 11:13 | NUR ---
NOTIFIED CARDIOLOGY OF NEW CONSULT.
--- NOTE | 2018-06-21 11:36 | NUR ---
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
[2018-06-21 21:45] LABS: BILIRUBIN NEGATIVE (NEGATIVE); BLOOD NEGATIVE (NEGATIVE); CLARITY CLEAR (CLEAR); COLOR YELLOW (YELLOW); GLUCOSE NEGATIVE (NEGATIVE); KETONE NEGATIVE (NEGATIVE); LEUKO ESTERASE NEGATIVE (NEGATIVE); NITRITE NEGATIVE (NEGATIVE); PH 5.5 (5.0-9.0); SPECIFIC GRAVITY 1.015 (1.005-1.030); UROBILINOGEN 0.2 E.U./dl (0.2-1.0)
[2018-06-21 21:52] LABS: BACTERIA 1+; HYALINE CAST 21-30
[2018-06-22] VITALS: BP 111/65
--- NOTE | 2018-06-22 04:51 | NUR ---
Upon discharge recommend patient to follow up for wound care in outpatient setting continue current wound care orders at discharging facility.
[2018-06-22 05:59] LABS: ALBUMIN 2.6 gm/dl (3.1-4.5); CREATININE 2.52 mg/dL (0.70-1.30); PHOSPHOROUS 3.9 mg/dL (2.5-4.9); TOTAL PROTEIN 5.9 gm/dL (6.4-8.2)
[2018-06-22 06:25] LABS: BASO % 0.4 % (0.0-1.0); EOS % 0.6 % (1.0-4.0); HEMATOCRIT 33.1 % (42.0-52.0); HEMOGLOBIN 10.5 g/dl (14.0-18.0); LYMPH # 0.6 10*3/uL (1.3-4.4); LYMPH % 12.1 % (27.0-41.0); MEAN CELL VOLUME 95.7 fl (80.0-94.0); MEAN CORPUSCULAR HGB 30.3 pg (27.0-31.0); MEAN CORPUSCULAR HGB CONC 31.7 g/dl (33.0-37.0); MEAN PLATELET VOLUME 12.9 fl (9.6-12.3); MONO # 0.3 10*3/uL (0.1-1.0); MONO % 6.4 % (3.0-9.0); NEUT # 4.2 10*3/uL (2.3-7.9); NEUT % 80.1 % (47.0-73.0); PLATELET COUNT AUTOMATED 140 10*3/uL (130-400); RED BLOOD COUNT 3.46 10*6/uL (4.50-5.90); RED CELL DISTRI WIDTH 19.6 % (0-14.5); WHITE BLOOD COUNT 5.3 10*3/uL (4.8-10.8)
[2018-06-22 06:42] LABS: INTERNATIONAL NORM RATIO 2.8 (2.0-3.5)
--- NOTE | 2018-06-22 07:00 | NUR ---
BEDSIDE REPORT OBTAINED FR ROSA SCOTT. PATIENT IS RESTING IN BED, EYES CLOSED. NO DISTRESS NOTED, RESP ARE ERND ON ROOM AIR. BED IS LOCKED IN LOWEST POSITION, ALARM MAINTAINED. CALL LIGTH LEFT WITHIN REACH.
[2018-06-22 08:00] VITALS: BP 108/82; BP 118/62
--- NOTE | 2018-06-22 08:40 | NUR ---
patient is a skilled patient at [facility], will need an insurance precert to return
--- NOTE | 2018-06-22 08:54 | NUR ---
Occupational Therapy evaluation completed on 4 with full eval to follow. Precautions include moderate complexity level via chart reveiw, testing and evalaution, fall risk; bed/chair alarm, acute debility, BLE edema,significant both shoulder ROM limits. Recommend OT per POC and SNF to enable return to prior level of independence. Thank you Chantale Daly OTR/l
--- NOTE | 2018-06-22 09:02 | NUR ---
OFFICE CALLED AND INFORMED OF CONSULT. STATED MESSAGE WILL BE PASSED ON TO DOCTOR.
--- NOTE | 2018-06-22 09:02 | NUR ---
PHYSICAL THERAPY Patient evaluated on 4, full evaluation to follow. Continue with PT as per plan of care with fall, wounds (B) LE and acute debility precautions. Will require SNF. PAtient is moderate complexity via chart review, tests and evaluation: [id number]. Thank you for this referral. Gwendolyn Sims,PT
--- NOTE | 2018-06-22 09:15 | NUR ---
CALLED AND STATED THORACENTESIS FOR 06/23, IF THEY ARE UNABLE TO DO SO PCP WILL HAVE TO BE INFORMED D/T TERESA NOT ABLE TO DO IT.
--- NOTE | 2018-06-22 10:36 | NUR ---
PALLIATIVE CARE CONSULT CALL INTO OFFICE. STATES PROVIDER WILL BE IN TO SEE PATIENT TODAY.
[2018-06-22 12:00] VITALS: BP 112/76
--- NOTE | 2018-06-22 13:50 | NUR ---
DIRECTOR OF RELIGIOUS ACTIVITIES FROM PALLIATIVE CARE INFORMS THAT PATIENT HAS AGREED TO CARE. WILL FOLLOW PATIENT OUTSITE OF HOSPITAL
--- NOTE | 2018-06-22 14:08 | NUR ---
OT NOTE Pt was seen this P.M. 1:1 for 15 minute OT session. Upon arrival pt was sitting upright on the EOB. Pt identified by name and and had no complaints at this time. Sit to stand transfer completed from bed level with modA. Functional mobility completed into the bathroom with CGA and use of w/w for UE support. There he was educated on safety with tight turns to decrease risk of falls. Pt transferred on to standard commode with Yosef and off standard commode with modA. Pt then returned to the recliner for a seated rest break. Sit to stand completed from will level with modA. Challenged pt's dynamic stanidng tolerance needed for increased I and enhanced safety. While having pt weight shift, cross midline, and kristina over all planes while standing without UE support pt required modA to correct LOB that occured backwards three times. Pt was left sitting upright in the recliner under DRIP PUMPER supervision. Continue with rec D/C plan to SNF. RYNE Li/Anusha
--- NOTE | 2018-06-22 14:35 | NUR ---
PHYSICAL THERAPY informed consent given, pt identified by name and , pt presented supine in in bed. supine to sit modA. STSx5 varrying modA edu on safe hand placement to avoid tipping FWW. walked 50ft x2 FWW CGA w/ rest in between w/ rolling chair follow. static standing balance E/C w/o AD 40sec x1, eyes open for 1 min, multiple LOB presented during both modA w/ edu to correct self. sit to supine modAx2 ended treatment pt in supine bed alarm rhinestone setter light and belongings in reach. 1:1 treatment w/ seating captain 25min SHIVAM LUGO PTA
[2018-06-22 15:37] VITALS: BP 110/82
[2018-06-22 20:00] VITALS: BP 134/68
[2018-06-23] VITALS: BP 121/62
[2018-06-23 07:19] LABS: BASO % 0.7 % (0.0-1.0); EOS # 0.3 10*3/uL (0.0-0.4); EOS % 5.7 % (1.0-4.0); HEMATOCRIT 32.4 % (42.0-52.0); HEMOGLOBIN 10.4 g/dl (14.0-18.0); LYMPH # 0.5 10*3/uL (1.3-4.4); LYMPH % 9.2 % (27.0-41.0); MEAN CORPUSCULAR HGB 30.5 pg (27.0-31.0); MEAN CORPUSCULAR HGB CONC 32.1 g/dl (33.0-37.0); MEAN PLATELET VOLUME 12.4 fl (9.6-12.3); MONO # 0.3 10*3/uL (0.1-1.0); MONO % 5.7 % (3.0-9.0); NEUT # 4.5 10*3/uL (2.3-7.9); NEUT % 78.4 % (47.0-73.0); PLATELET COUNT AUTOMATED 132 10*3/uL (130-400); RED BLOOD COUNT 3.41 10*6/uL (4.50-5.90); RED CELL DISTRI WIDTH 19.6 % (0-14.5); WHITE BLOOD COUNT 5.8 10*3/uL (4.8-10.8)
[2018-06-23 07:25] LABS: POTASSIUM 3.6 mmol/L (3.5-5.1)
[2018-06-23 07:29] LABS: CREATININE 2.39 mg/dL (0.70-1.30); INTERNATIONAL NORM RATIO 2.7 (2.0-3.5)
--- NOTE | 2018-06-23 08:15 | NUR ---
OT NOTE Pt was seen this A.M. 1:1 for 30 minute OT session. Upon arrival pt was supine in bed. Pt identified by name and and had no complaints at this time. Pt transferred supine to sit EOB with modA for assist with UB and BLE. Sit to stand transfer completed from bed level with Yosef. Educated pt on importance and benefits of pushing up from the bed level to increase I. Functional mobility completed into the bathroom with CGA and use of w/w for UE support. There he transferred on to the standard commode with Yosef and use of grab bar and off standard commode with modA and use of grab bar. Pt then stood sink side while washing his hands with CGA, while standing without UE support pt had LOB backwards that required modA to correct. Functional mobility completed back to the recliner with CGA and use of w/w. Challenged pt's standing balance needed for increased I and enhanced safety in ADL's while having him weight shift, cross midline, and reach over all planes of motion. Pt had multiple LOb backwards that required modA to correct. Pt was left sitting upright in the recliner with call light in hand, tray table in place, and body alarm on for safety. Continue with rec D/C plan to [facility]. RYNE Li/Anusha
--- NOTE | 2018-06-23 08:42 | NUR ---
RADIOLOGY UNABLE TO DUE THORACENTESIS D/E INR LEVELS. INFORMED OF CHANGES, STATES TO HAVE THEM COME UP AND GET CXR NOW AND JOSE DISCUSS POSSIBLE HOLDING OF BLOOD THINNERS WITH UNLESS THORACENTESIS WILL BE OUTPATIENT. 0900 CXR WILL BE D/C D/T [facility]AON FOR ORDER IS AFTER THORACENTESIS
--- NOTE | 2018-06-23 08:57 | NUR ---
Faxed updated clinicals and therapy evals to [facility], precert started on 06/22/18. Waiting for auth.
--- NOTE | 2018-06-23 09:00 | NUR ---
patient will be going back to [facility] when medically stable and insurance precert has been obtained
--- NOTE | 2018-06-23 10:35 | NUR ---
PHYSICAL THERAPY informed consent given, pt identified by name and , pt presented sitting in chair. STS modAx2 and stand to sit Yosef multple times edu on safe hand placement to avoid tipping FWW. TUG test 1min 17sec FWW CGA. walked 60ft x1 20ft x1 CGA FWW w/ sitting rests in between . Static standing balance w/o AD 1min no LOB presented, dynamic standing balance 1 hand on AD crossing midline BUE x3 no LOB presented. Seated Bx10:manual resistance LAQ and hip ABD, pillow squeeze hip add, AROM marches, toe lifts x20. ended treatment pt sitting in chair, call light and belongings in reach, chair alarm on. 1:1 treatment w/ DOOR CLOSER 26min. SHIVAM LUGO DOOR CLOSER
[2018-06-23 12:00] VITALS: BP 147/79
--- NOTE | 2018-06-23 13:58 | NUR ---
OT NOTE Attempted to see pt this P.M. for second OT session and upon arrival pt was supine in bed eating his lunch. Will check back at a later time/date. RYNE Li/Anusha
--- NOTE | 2018-06-23 14:17 | NUR ---
PHYSICAL THERAPY pt states he is going to [facility] today or tomorrow to receive more therapy. pt also states he just got comforatble in bed and does not feel like doing therapy at this time. Will check back tomorrow if still present at [facility]. SHIVAM LUGO [employer]
--- NOTE | 2018-06-23 15:00 | NUR ---
IV started right forearm with #22 angiocath after 0 attempts. The IV site was prepped with Chloraprep. Heparin lock attached. Sterile dressing applied. Patient tolerated precedure well. Procedure performed according to [facility] policy & procedure. CAITY MEEKS
--- NOTE | 2018-06-23 15:00 | NUR ---
Hep Lock discontinued L WRIST. Site symptomatic, LEAKING AT SITE. Pressure applied. Sterile dressing applied. CAITY MEEKS
--- NOTE | 2018-06-23 15:09 | NUR ---
PHYSICAL THERAPY CO-SIGN I approve of the Phyical Therapy notes written above. CHACHA SIERRA PT
--- NOTE | 2018-06-23 15:18 | NUR ---
STATED THAT PATITNET CAN CONTINUE BLOOD THINNERS AND THAT THORACENTESIS WILL BE COMPLETED OUTPATIENT.
[2018-06-23 16:00] VITALS: BP 139/70
[2018-06-23 20:00] VITALS: BP 141/78
[2018-06-24] VITALS: BP 124/90
[2018-06-24 06:49] LABS: CREATININE 2.24 mg/dL (0.70-1.30); POTASSIUM 3.6 mmol/L (3.5-5.1)
[2018-06-24 12:00] VITALS: BP 131/70
[2018-06-24 16:00] VITALS: BP 131/69
[2018-06-24 20:00] VITALS: BP 138/79
[2018-06-25] VITALS: BP 124/71
[2018-06-25 06:17] LABS: BASO % 0.3 % (0.0-1.0); EOS # 0.1 10*3/uL (0.0-0.4); EOS % 1.2 % (1.0-4.0); HEMATOCRIT 33.5 % (42.0-52.0); HEMOGLOBIN 10.4 g/dl (14.0-18.0); LYMPH # 0.6 10*3/uL (1.3-4.4); LYMPH % 9.4 % (27.0-41.0); MEAN CELL VOLUME 95.2 fl (80.0-94.0); MEAN CORPUSCULAR HGB 29.5 pg (27.0-31.0); MEAN PLATELET VOLUME 12.6 fl (9.6-12.3); MONO # 0.4 10*3/uL (0.1-1.0); MONO % 7.4 % (3.0-9.0); NEUT # 4.8 10*3/uL (2.3-7.9); NEUT % 81.5 % (47.0-73.0); PLATELET COUNT AUTOMATED 124 10*3/uL (130-400); RED BLOOD COUNT 3.52 10*6/uL (4.50-5.90); RED CELL DISTRI WIDTH 19.7 % (0-14.5); WHITE BLOOD COUNT 5.8 10*3/uL (4.8-10.8)
[2018-06-25 06:36] LABS: CREATININE 2.2 mg/dL (0.70-1.30); POTASSIUM 3.7 mmol/L (3.5-5.1)
[2018-06-25 08:00] VITALS: BP 128/60
[2018-06-25] MEDS ORDERED: BUMETANIDE1 MG PO (10:09)
[2018-06-25] MEDS ORDERED: APRESOLINE10 MG PO (10:09)
[2018-06-25] MEDS ORDERED: IMDUR SA30 MG PO (10:09)
[2018-06-25] MEDS ORDERED: SYNTHROID,LEV175 MCG PO (10:09)
--- NOTE | 2018-06-25 13:00 | NUR ---
Discharge instructions reviewed with patient/family. Patient receptive and verbalizes understanding. Follow-up care arranged. Written instructions given to patient/family. PATIENT'S HEPLOCK DISCONTINUED. BRICKLAYER APPRENTICE REMOVED. REPORT HAS BEEN GIVEN TO [facility]. PATIENT TAKEN BY AMBULANCE. MIKALA MCKEON
--- NOTE | 2018-06-26 13:54 | NUR ---
OCCUPATIONAL THERAPY CO-SIGN I approve of the Occupational Therapy notes written above. NAFISA KIRAN
[2018-07-02] MEDS ORDERED: APRESOLINE10 MG PO (13:56)
[2018-07-13] MEDS ORDERED: COUMADIN3 M1 PO (18:49)
[2018-07-13] MEDS ORDERED: K-TAB10 MEQ PO (18:50)
[2018-07-13] MEDS ORDERED: DEMADEX20 M1 PO (18:51)
[2018-07-13] MEDS ORDERED: ALDACTONE25 M1 PO (18:52)
[2018-07-15] MEDS ORDERED: METOPROLOL SUCC25 M2 PO (14:11)
== END 2018-06-25 13:00 | disposition other institution (70) | DRG 80 ==
LOC: ED 01:28 → 4E 02:54 → EDHOLD 02:54 → 4E 03:24
PROVIDERS: Internal Medicine Critical Care Medicine; Student in an Organized Health Care Education/Training Program; ADMIT Internal Medicine
DX: E03.5 Myxedema coma (principal); G93.41 Metabolic encephalopathy; I50.43 Acute on chronic combined systolic (congestive) and diastolic (congestive) heart failure; E87.1 Hypo-osmolality and hyponatremia; N18.4 Chronic kidney disease, stage 4 (severe); I24.8 Other forms of acute ischemic heart disease; E44.0 Moderate protein-calorie malnutrition; N17.9 Acute kidney failure, unspecified; I13.0 Hypertensive heart and chronic kidney disease with heart failure and stage 1 through stage 4 chronic kidney disease, or unspecified chronic kidney disease; I48.2 Chronic atrial fibrillation; D53.9 Nutritional anemia, unspecified; E11.22 Type 2 diabetes mellitus with diabetic chronic kidney disease; L89.152 Pressure ulcer of sacral region, stage 2; L89.890 Pressure ulcer of other site, unstageable; L89.220 Pressure ulcer of left hip, unstageable; E03.9 Hypothyroidism, unspecified; I25.119 Atherosclerotic heart disease of native coronary artery with unspecified angina pectoris; E11.51 Type 2 diabetes mellitus with diabetic peripheral angiopathy without gangrene; Z66 Do not resuscitate; Z51.5 Encounter for palliative care; E83.41 Hypermagnesemia; T14.8XXA Other injury of unspecified body region, initial encounter; Z79.4 Long term (current) use of insulin; Z95.0 Presence of cardiac pacemaker; Z79.01 Long term (current) use of anticoagulants; Z90.79 Acquired absence of other genital organ(s); Z95.5 Presence of coronary angioplasty implant and graft; Z79.899 Other long term (current) drug therapy; Z79.82 Long term (current) use of aspirin; X58.XXXA Exposure to other specified factors, initial encounter; Y93.89 Activity, other specified; Y92.89 Other specified places as the place of occurrence of the external cause; Y99.8 Other external cause status; Z68.25 Body mass index [BMI] 25.0-25.9, adult